=== PATIENT | male | born 1955 | race Caucasian/White ===

== ENCOUNTER 2018-10-10 10:13 | Outpatient (CLI) | payer OTHER, SELFPAY ==
[2018-10-10 11:41] LABS: ALT 35 U/L (12-78); AST 36 U/L (15-37); Alkaline Phosphatase 89 U/L (46-116); Anion Gap 8.7 mmol/L (3-11); BUN 16 mg/dL (7-18); Bilirubin, Total 0.5 mg/dL (0.2-1.0); CO2 30.3 mmol/L (21.0-32.0); CREATININE 0.88 mg/dL (0.70-1.30); Calcium 9.3 mg/dL (8.5-10.1); Chloride 103 mmol/L (98-107); Glucose 95 mg/dL (70-100); Potassium 4.3 mmol/L (3.5-5.1); Sodium 142 mmol/L (136-145); Total Protein 6.8 g/dL (6.4-8.2)
[2018-10-10 11:53] LABS: Cholesterol 205 mg/dL (50-200); HDL Cholesterol 50 mg/dL (40-60); LDL CHOLESTEROL 135 mg/dL (<100); Triglyceride 129 mg/dL (30-150)
== END 2018-10-10 10:33 ==
PROVIDERS: PCP Family Medicine; Visit Provider Family Medicine
DX: Z87.891 Personal history of nicotine dependence (principal); E78.00 Pure hypercholesterolemia, unspecified
CPT/HCPCS: 36415; 80053; 80061; 83721

== ENCOUNTER 2018-10-21 13:11 | Emergency (ER) | payer OTHER, SELFPAY ==
[2018-10-21 13:15] VITALS: BP 141/93; PULSE 84; RESP 16; TEMP 36.8; O2SAT 98
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
[2018-10-21 15:05] VITALS: BP 148/83; PULSE 75; RESP 16; TEMP 36.6; O2SAT 99
--- NOTE | 2018-10-21 15:20 | DI.VRAD_ITS ---
EXAM: XR Right Ribs EXAM DATE/TIME: 10/21/2018 2:27 PM CLINICAL HISTORY: 63 years old, male; Injury or trauma; Fall; Initial encounter; Abrasion; Rib area TECHNIQUE: Imaging protocol: XR Right ribs. Views: 2 views. COMPARISON: No relevant prior studies available. FINDINGS: Bones/joints: There is no displaced rib fracture. There is slight undulation of the anterolateral contour of the RIGHT 9th and 10th ribs which likely anatomic variation. No focal osseous lesions. Mild degenerative changes in the thoracic and upper lumbar spine. Soft tissues: Normal. IMPRESSION: No displaced rib fractures. EXAM: XR Chest, 2 Views EXAM DATE/TIME: 10/21/2018 2:27 PM CLINICAL HISTORY: 63 years old, male; Injury or trauma; Fall; Initial encounter; Abrasion; Rib area TECHNIQUE: Imaging protocol: XR of the chest, 2 views. COMPARISON: No relevant prior studies available. FINDINGS: Lungs: There are no pulmonary infiltrates or lung nodules. Pleural space: There is no evidence of pleural effusion or pneumothorax. Heart/Mediastinum: The cardiomediastinal silhouette is normal. Bones/joints: Mild degenerative changes in thoracic and upper lumbar spine. No acute osseous findings. IMPRESSION: No acute cardiopulmonary disease. Dictated and Authenticated by: Beatris Mccarty MD. Ordering:MEÑO Keith MD
--- NOTE | 2018-10-21 15:21 | DI.VRAD_ITS ---
EXAM: XR Right Elbow EXAM DATE/TIME: 10/21/2018 2:27 PM CLINICAL HISTORY: 63 years old, male; Injury or trauma; Fall; Initial encounter; Abrasion; Elbow; Right TECHNIQUE: Imaging protocol: XR Right elbow. Views: 3 or more views. COMPARISON: No relevant prior studies available. FINDINGS: Bones/joints: No acute fracture or dislocation. The intra-articular fat pads are not elevated. No focal osseous lesions. Articular structures are unremarkable. Soft tissues: Soft tissues are unremarkable. IMPRESSION: No acute findings. Dictated and Authenticated by: Beatris Mccarty MD. Ordering:MEÑO Keith MD
[2018-10-21 15:57] VITALS: BP 132/76; PULSE 80; RESP 16; TEMP 36.9; O2SAT 99
== END 2018-10-21 15:57 | disposition home or self-care (01) ==
PROVIDERS: Emergency Provider Physician Assistant; PCP Family Medicine
DX: S06.0X0A Concussion without loss of consciousness, initial encounter (principal); S20.211A Contusion of right front wall of thorax, initial encounter; S50.01XA Contusion of right elbow, initial encounter; V18.0XXA Pedal cycle driver injured in noncollision transport accident in nontraffic accident, initial encounter
CPT/HCPCS: 99284; 71046; 71100; 73080; 99282

== ENCOUNTER 2019-11-19 02:19 | Outpatient (CLI) | payer OTHER, SELFPAY ==
[2019-11-19 12:37] LABS: HCT 43.9 % (40.0-50.0); HGB 14.8 g/dL (13.5-17.5); Mean Corp. HGB Concentration 33.7 g/dL (32.0-36.0); Mean Corpuscular Hemoglobin 30.4 pg (27.0-33.0); Mean Corpuscular Volume 90.1 fL (80-95); Mean Platelet Volume 12.4 fL (8.0-11.0); Platelet Count 175 x1000/uL (130-400); RBC 4.87 m/cumm (4.50-6.00); RBC Distribution Width 12.5 % (11.8-14.1); White Blood Cell Count 6.97 k/cumm (4.4-10.8)
[2019-11-19 13:12] LABS: ALT 21 U/L (16-63); AST 19 U/L (15-37); Albumin 4.1 g/dL (3.4-5.0); Alkaline Phosphatase 87 U/L (46-116); Anion Gap 8.7 mmol/L (3-11); BUN 19 mg/dL (7-18); Bilirubin, Total 0.9 mg/dL (0.2-1.0); CO2 27.3 mmol/L (21.0-32.0); CREATININE 0.97 mg/dL (0.70-1.30); Calcium 9.4 mg/dL (8.5-10.1); Calculated LDL 129 mg/dL (<100); Chloride 105 mmol/L (98-107); Cholesterol 189 mg/dL (<200); Glucose 87 mg/dL (74-106); HDL Cholesterol 44 mg/dL (40-60); Potassium 4.6 mmol/L (3.5-5.1); Sodium 141 mmol/L (136-145); Total Protein 6.6 g/dL (6.4-8.2); Triglyceride 80 mg/dL (<150)
== END 2019-11-19 02:39 ==
PROVIDERS: PCP Family Medicine; Visit Provider Family Medicine
DX: E78.00 Pure hypercholesterolemia, unspecified (principal); R03.0 Elevated blood-pressure reading, without diagnosis of hypertension; Z00.00 Encounter for general adult medical examination without abnormal findings
CPT/HCPCS: 36415; 80053; 80061; 85027

== ENCOUNTER 2020-02-15 07:33 | Outpatient (CLI) | payer OTHER, SELFPAY ==
[2020-02-18 19:06] LABS: Patient Race White; SARS-CoV-2 RNA Undetected (Undetected); SARS-CoV-2 Specimen Source Nasopharynx
== END 2020-02-15 07:53 ==
PROVIDERS: PCP Family Medicine; Visit Provider Family Medicine
DX: Z11.59 Encounter for screening for other viral diseases (principal)
CPT/HCPCS: U0003

== ENCOUNTER 2020-10-29 08:14 | Outpatient (CLI) | payer MEDICARE, OTHER, SELFPAY ==
[2020-10-29 13:09] LABS: Hemoglobin A1C 5.6 % (<5.7)
[2020-10-29 14:10] LABS: ALT 23 U/L (16-63); AST 20 U/L (15-37); Alkaline Phosphatase 84 U/L (46-116); Anion Gap 5.4 mmol/L (3-11); BUN 17 mg/dL (7-18); Bilirubin, Total 0.6 mg/dL (0.2-1.0); CO2 31.6 mmol/L (21.0-32.0); Calcium 9.3 mg/dL (8.5-10.1); Calculated LDL 124 mg/dL (<100); Chloride 108 mmol/L (98-107); Cholesterol 194 mg/dL (<200); Glucose 95 mg/dL (74-106); HDL Cholesterol 48 mg/dL (40-60); Potassium 4.7 mmol/L (3.5-5.1); Sodium 145 mmol/L (136-145); Total Protein 6.6 g/dL (6.4-8.2); Triglyceride 113 mg/dL (<150)
[2020-10-29 22:25] LABS: PSA, Screening 2.1 ng/mL (0.0-4.5)
== END 2020-10-29 08:15 | disposition home or self-care (01) ==
PROVIDERS: PCP Nurse Practitioner Family; Visit Provider Nurse Practitioner Family
DX: R03.0 Elevated blood-pressure reading, without diagnosis of hypertension (principal); E78.00 Pure hypercholesterolemia, unspecified; Z13.1 Encounter for screening for diabetes mellitus; N40.0 Benign prostatic hyperplasia without lower urinary tract symptoms; Z12.5 Encounter for screening for malignant neoplasm of prostate
CPT/HCPCS: 36415; 80053; 80061; 84153; 83036

== ENCOUNTER 2021-05-27 03:04 | Outpatient (CLI) | payer MEDICARE, SELFPAY ==
[2021-05-28 11:42] LABS: COVID-19 RT-PCR UVMMC Result Negative (Negative)
== END 2021-05-27 03:05 | disposition home or self-care (01) ==
LOC: LBO 03:04
PROVIDERS: PCP Nurse Practitioner Family; Visit Provider Nurse Practitioner Family
DX: Z20.822 Contact with and (suspected) exposure to COVID-19 (principal)
CPT/HCPCS: U0003; U0005

== ENCOUNTER 2022-02-16 02:01 | Outpatient (CLI) | payer MEDICARE, SELFPAY ==
[2022-02-16 17:22] LABS: Calculated LDL 163 mg/dL (<100); Cholesterol 233 mg/dL (<200); HDL Cholesterol 53 mg/dL (40-60); Triglyceride 89 mg/dL (<150)
== END 2022-02-16 02:02 | disposition home or self-care (01) ==
PROVIDERS: PCP Family Medicine; Visit Provider Family Medicine
DX: E78.5 Hyperlipidemia, unspecified (principal)
CPT/HCPCS: 36415; 80061

== ENCOUNTER 2022-06-09 15:20 | Inpatient (IN) | payer MEDICARE, SELFPAY ==
[2022-06-09] VITALS (49 sets, daily range): BP systolic 133–196; BP diastolic 62–98; PULSE 65–96; RESP 11–34; TEMP 36.3–37.4; O2SAT 94–99
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
--- NOTE | 2022-06-09 15:33 | W.ED.GENAD ---
Discharge Plan Disposition Patient Disposition: Admit to [facility] Condition: Stable Discharge Details Clinical Impression: Concussion, Closed nondisplaced fracture of seventh cervical vertebra, Liver laceration, closed, Injury due to skiing accident Primary Care Provider: Jude Baker ED Provider: Cruz Clarke Home Meds and New Rx's Prescriptions: No Action No Known Home Meds Medical Decision Making 66-year-old male with a past medical history of chronic nasal septal deviation, nasal polyp, high cholesterol, presents today for evaluation of a skiing accident. Patient was found by bystanders unconscious in the [place] up against a tree that was about 10 inches in diameter. His helmet was on. He was extracted from the scene and brought down to the base. He was altered and confused with perseverations. He was wearing his helmet. He is not on blood thinners. He does complain of right chest pain, right back pain, and neck pain. Vital signs were stable per EMS. Patient has no other complaints at this time. Skull exam demonstrates right sided conjunctival injection, but no other traumatic abnormality. Mild right thoracic tenderness over the scapula and right lateral and posterior chest wall. Mild midline spinal tenderness over C7-T5. No lumbar or sacral tenderness. No abdominal tenderness. Bedside ultrasound demonstrates good lung movement on the left, slightly reduced lung movement but still a positive sliding on the right. No free fluid in the abdomen, no evidence of pericardial effusion or tamponade. Differential includes rib fractures, small pneumothorax but this is unlikely. Intracranial injury/bleed/concussion. We will get a CT scan of the head neck chest abdomen and pelvis. Patient's close were removed, and C-spine precautions were maintained. We will monitor closely and reassess. At this time GCS is 15, no signs of altered mental status requiring intubation. 7:[address] scan of the head is negative for acute process per radiology. CT scan of the neck demonstrated evidence of a C7 fracture at the left transverse process extending through the superior facet with a small osteophyte fracture as well. CTA of the neck shows no evidence of vertebral or carotid artery dissection. CT scan of the chest negative for acute process, CT scan of the abdomen showed no acute process per Dr. Echevarria, however she stated that there was motion artifact and if there was a high degree of suspicion that the patient should be rescanned for his abdomen for potential liver laceration. Repeat CT scan was performed and shows a 2 cm laceration versus contusion that does not extend to the capsule. Secondary survey continues to demonstrate a well-appearing male. He has had a normal heart rate during his entire stay, no tachycardia or hypotension whatsoever. He does have a very mild amount of right upper abdominal tenderness versus right lower chest wall tenderness. EKG and troponin are normal. Hemoglobin is stable at 14.7. Electrolytes and renal function good. We did contact [facility] spine and discussed the case with Dr. Wicnhester, he reviewed the images, and at this time his recommendations are no DVT prophylaxis, rigid c-collar for the next 2 weeks and outpatient follow-up in 2 weeks. He did state that if we could get an upright AP and lateral, as well as a swimmer view at some point that that would be helpful for further outpatient assessment. We did contact [facility] trauma surgery, Dr. Mathew, we discussed the case and the liver laceration versus contusion with him. Images were reviewed. Physical exam findings, and hemodynamic status, and hemoglobin levels were also discussed. At this time Dr. Mathew does feel that continued observation is warranted and reasonable. Unfortunately at this time [facility] does not have any beds available for transfer. With this component, Dr. Mathew does feel that the patient would be appropriate for continued close monitoring here at [facility], but he also did explicitly state that if there is any changes, or concerns in the patient's status that he is available for consult at any time tonight for reassessment and rediscussion of the case. I discussed the case with the hospitalist Dr. Merida, he accepts the patient for admission to the ICU. This was also discussed with the nursing power plant operators supervisor Ramona, and we do have ICU beds available and staff feels comfortable with this as the patient is hemodynamically stable with no worsening clinical component at this time. Current heart rate is 70, oxygenation is 98% on room air, blood pressure is 130/72. I did reassess the patient's mental status, vision is intact in both eyes, he is able to communicate well, however he does have some recall issues still when asking him to relay the plan that was discussed. I do suspect mild to moderate concussion. We will continue to monitor. I have extensively reviewed the treatment plan with the patient. I have addressed all patient concerns at this time. I have also discussed the plan with the admitting physician and they agree with the current assessment and plan and have agreed to assume responsibility for the patient. All parties demonstrate verbal understanding and agreement with our assessment and plan at this time. The documentation in this chart was dictated using [employer] dictation software. Please excuse any dictation errors. Additionally per the request of Dr. Merida, we have typed and crossed for 4 units of blood out of an abundance of precaution. FINDINGS: Head CT Exam somewhat limited by streak artifact from IO is outside of the patient. Ventricles and Extra axial spaces: Normal in size and morphology for the patient's age. Hemorrhage: None. Cerebral parenchyma: Normal. Midline shift: None. Brainstem/Cerebellum: Normal. Calvarium: Normal. Visualized Paranasal sinuses/Mastoids: Mucous retention cyst left maxillary sinus. Cervical Spine CT BONES: Vertebral body heights are maintained. Alignment is normal. There is a nondisplaced fracture through the left transverse process of C7. There is also a fracture extending through the adjacent superior facet of C7. there is also question of fracture through an osteophyte at the lateral border of the C7 vertebral body. Degenerative disc changes and facet degenerative changes are seen . SOFT TISSUES: No paraspinal hematoma. The airway appears intact. No pneumothorax is seen at the lung apices. IMPRESSION: Head CT: No acute abnormality. C-spine CT: Nondisplaced fractures through the left transverse process and left superior articulating facet of C7. Degenerative changes. Findings discussed with Dr. Clarke of the emergency department. FINDINGS: CHEST: Exam somewhat limited by respiratory motion at the lung bases. Tracheobronchial tree: Patent where visualized. Mediastinum and Letty: No dominant adenopathy or fluid collection. Pulmonary parenchyma: No consolidation or dominant measurable mass. Pleura: No effusion or pneumothorax. Lymph nodes: Within normal limits. Aorta: Thoracic portion non-dilated. Heart: Normal size. No pericardial effusion. Bones: Unremarkable for age. No rib or spine fractures identified. ABDOMEN: Liver: Limited evaluation due to significant motion artifact. Question of an area of decreased density in the posterior superior right lobe. Normal density. No measurable mass. Gallbladder and biliary tract: No radiodense calculus or dilation. Pancreas: Normal density, no abnormal calcifications or inflammatory process. Spleen: Normal. Kidneys: Normal size, contour and axis. No radiodense stones or obstructive uropathy. No masses seen. Bilateral parapelvic renal cysts. Adrenal glands: No masses seen. Aorta: Abdominal portion non-dilated. Mild atherosclerotic changes. Lymph nodes: Within normal limits. Soft tissues: Unremarkable. PELVIS: Bladder: Markedly distended. No gross wall thickening. Bowel: No obstruction or bowel wall thickening. Appendix normal. Peritoneal cavity: No ascites, collection or mesenteric inflammatory response. Bones: No evidence of spine or pelvic fracture. SI joints and pubic symphysis appear intact. Degenerative changes of both hips. Mild degenerative changes of the lumbar spine. Reproductive organs: Mildly enlarged prostate. Both testicles appear to be positioned within the inguinal canals. Small bilateral hydroceles are suspected. IMPRESSION: Limited evaluation of the liver due to significant motion artifact. There is high clinical concern of liver laceration, recommend rescanning through the liver. No fracture in the thoracic, lumbar spine or pelvis. Findings discussed with Dr. Clarke of the emergency department. FINDINGS: Right common carotid artery: No stenosis. No dissection or occlusion. Right internal carotid artery: No stenosis of the extracranial segment. No dissection or occlusion. Right external carotid artery: No occlusion or stenosis of the origin. Left common carotid artery: No stenosis. No dissection or occlusion. Left internal carotid artery: No stenosis of the extracranial segment. No dissection or occlusion. Left external carotid artery: No occlusion or stenosis of the origin. Right vertebral artery: No stenosis. No dissection or occlusion. Left vertebral artery: No stenosis. No dissection or occlusion. Soft tissues: Normal. No significant soft tissue swelling. Bones/joints: No acute fracture. IMPRESSION: No evidence of 50% or greater stenosis involving the cervical segments of the right or left internal carotid arteries by NASCET criteria. No carotid or vertebral dissection is or occlusions are detected at cervical levels. REFERENCES: NASCET CRITERIA. The degree of stenosis in the cervical segment of the internal carotid artery is based on NASCET criteria. Normal is no stenosis. Mild is less than 50% stenosis. Moderate is 50- 69% stenosis. Severe is 70% to 99% stenosis. Total occlusion is no detectable patent lumen. Thank you for allowing us to participate in the care of your patient. Dictated and Authenticated by: Massimo Warren MD 06/09/2022 6:40 PM Eastern Time ([place] & [place]) FINDINGS: Lungs: Minimal dependent subsegmental atelectasis. Liver: In the right lobe of the liver is a 23 mm linear hypodensity which does not extend to the capsule. Allowing for motion artifact this is likely very similar to the previous study. There is no significant perihepatic fluid. No subcapsular fluid. Gallbladder and bile ducts: No calcified stones. No ductal dilation. Pancreas: No ductal dilation. No masses. Spleen: No splenomegaly or focal lesions. Adrenal glands: No mass. Kidneys and ureters: Benign-appearing parapelvic cysts in the kidneys. No renal masses or hydronephrosis bilaterally. Stomach and bowel: A few scattered colonic diverticula without inflammation. No focal pathology in the small bowel. Appendix: No evidence of appendicitis. Intraperitoneal space: No free air. No significant fluid collection. Vasculature: No abdominal aortic aneurysm. Lymph nodes: No significantly enlarged lymph nodes. Urinary bladder: The urinary bladder is distended. Mildly trabeculated urinary bladder wall likely relates to chronic outlet obstructive disease. Reproductive: Mild prostatic enlargement. Bones/joints: Scattered degenerative changes in the bones with no acute fracture. Soft tissues: No suspicious lesions. IMPRESSION: 1. Right hepatic laceration/contusion, grade 2 based on length, however not extending to the capsule, similar to previous imaging. 2. Incidental findings as described. Thank you for allowing us to participate in the care of your patient. Dictated and Authenticated by: Juli Ford MD 06/09/2022 6:43 PM Eastern Time ([place] & [place] HPI General Date/Time Provider Initiated Documentation: 06/09/22 15:30. HPI Narrative: 66-year-old male with a past medical history of chronic nasal septal deviation, nasal polyp, high cholesterol, presents today for evaluation of a skiing accident. Patient was found by bystanders unconscious in the [place] up against a tree that was about 10 inches in diameter. His helmet was on. He was extracted from the scene and brought [place] to the base. He was altered and confused with perseverations. He was wearing his helmet. He is not on blood thinners. He does complain of right chest pain, right back pain, and neck pain. Vital signs were stable per EMS. Patient has no other complaints at this time. Related Data Home Medications Medication Instructions Recorded Confirmed Unknown [No Known Home Meds] 02/03/22 02/03/22 Allergies Allergy/AdvReac Type Severity Reaction Status Date / Time Pollen Allergy Mild Uncoded 02/03/22 15:15 General Stated Complaint: Trauma CLAUDINE: 2 Review of Systems All systems reviewed & are unremarkable except as noted in HPI and below PFSH All Active Problems (Updated 06/09/22 @ 19:54 by Cruz Clarke DO) Concussion (Acute) Closed nondisplaced fracture of seventh cervical vertebra (Acute) Liver laceration, closed (Acute) Injury due to skiing accident (Acute) Tinea pedis (Acute) BPH NOS w/o ur obs/LUTS (Acute) Elevated BP without diagnosis of hypertension (Acute) Seasonal allergic rhinitis due to pollen (Acute) Migraine with aura and without status migrainosus, not intractable (Acute) Nasal polyp (Chronic) Elevated LDL cholesterol level (Chronic) Family history of Alzheimer's disease (Acute 10/04/17) History of tobacco use (Acute) Injury of eye region (Acute) Nasal septal deviation (Acute 10/04/17) Medical History (Updated 06/09/22 @ 19:54 by Cruz Clarke DO) Nasal septal deviation Surgical History colonoscopy (12/26/17) Colonoscopy - MAC (~2006) eye surgery left Tonsillectomy Family History Mother , 89 Alzheimer's disease Skin cancer Father Essential hypertension Alcohol abuse Sister Asthma Hypertension Brother Skin cancer Brother Skin cancer Brother No problems noted. Maternal Grandfather , 87 Stroke Paternal Grandfather , 89 Alzheimer's disease Maternal Grandmother , 94 No problems noted. Paternal Grandmother , 20s - peritonitis No problems noted. Social History Smoking/Tobacco Use Status: Former Tobacco Use tobacco type: cigarettes and cigars Quit Date: 05/16/89 Tobacco: How many years used: 20 Second Hand Exposure: Yes Smoking risk assessment performed?: Yes Alcohol Intake: current Alcohol Intake frequency: a few times a week Alcohol type: beer Drug use: Rarely Substance use type: marijuana Caregiver/Support person: No Household members: none Housing: house Communication Needs: None Do you need help understanding health information?: Never Pets and animals: No Sexually active: No Do you think of yourself as: straight/heterosexual Current gender identity: male What is your relationship status?: How often do you talk on the phone with friends or family?: three or more times per week How often do you get together with friends or relatives?: three or more times per week Do you belong to any clubs or organized social groups?: no Panel score (0-1 are the most socially isolated patients): 1 What type of physical activity do you participate in: bicycling, weight lifting and other Details: rowing, skiing Duration: > 90 minutes/day Frequency: daily Madonna/Jainism: none Special madonna needs: No Seatbelt use: always Helmet use: Yes Helmet use: always Drive intox or ride w/intox transit mixer driver: No Do you feel safe at home: Yes Do you feel safe in your relationship?: Yes Exam Narrative Exam Narrative: 1.Const: Well-nourished, Well-developed, appearing stated age 2.Eyes: PERRL, notable conjunctival injection on the right, none on the left, no proptosis. No tenderness over the eye or the orbit 3.ENT: Atraumatic external nose and ears. Moist MM. Neck: Symmetric, trachea midline, No thyromegaly. There is no evidence of raccoon eyes, sauer sign, CSF rhinorrhea, mastoid tenderness, cranial crepitus, hemotympanum, exophthalmos, or hyphema. Patient demonstrates intact dentition with no signs of tooth avulsion or fracture, no signs of jaw deformity, no evidence of a LeFort's fracture, with an intact palate, nose and orbital region. There is no evidence of a nasal septal hematoma. No proptosis. Jaw closes symmetrically. Airway is clear. 4.CVS: Regular rate and rhythm, Normal s1 and s2. No murmurs, carotid bruits, rubs, or gallops. Radial pulses 2+ bilaterally and symmetric. Dorsalis pedis pulses 2+ bilaterally and symmetric. 2+ capillary refill. No evidence of distant heart sounds. No extremity edema. No evidence of gross hemorrhage. 5.RESP: Airway clear, no obstructions. No abrasions or ecchymosis. Chest movement symmetric with respirations. No lateral or anterior chest wall tenderness. Mild right posterior thoracic tenderness. trachea midline. No crepitus. No step offs. No paradoxical movements. Lungs are clear to auscultation bilaterally. No rales, rhonchi, wheezing or stridor. Breath sound symmetric. No Sucking chest wounds. No clinical evidence of significant chest trauma. 6.GI: Soft, nondistended, nontender. Bowel tones normoactive. No masses or organomegaly. No ecchymosis or abrasions. No periumbilical ecchymosis or seatbelt sign. No flank or CVA tenderness. No clinical signs of significant trauma. Genital Exam: Intact and traumatically unremarkable genital and rectal exam with no significant bruising, blood, or deformity. Rectal tone normal, stool without gross blood. No clinical evidence of significant abdominal trauma. 7.MSK: No gross deformities or discolorations or lesions. Tolerates full range of motion of extremities without tenderness. All compartments of upper and lower extremities are soft with no tenderness. Vascular exam demonstrates brisk capillary refill and intact pulses in all extremities. Pelvic exam demonstrates a stable pelvis, nontender to lateral compression and palpation of symphysis pubis.. No clinical evidence of significant musculoskeletal trauma. No midline tenderness to palpation over the LS spine. Mild tenderness over C7-T2 midline. C-collar is in place. Patient has +5 out of 5 strength in the lower extremities in dorsiflexion and plantarflexion, knee flexion and extension, hip flexion and extension. Normal strength for dorsiflexion and plantar flexion of the great toe bilaterally. There is +2 over 2 dorsalis pedis pulses bilaterally. There is normal sensation to the skin with light touch at the foot, knee, and hip. Normal saddle sensation. Good sensation over the deep sural nerve area bilaterally. Rectal exam deferred. Reflexes are +2 over 4 in the patellar reflex bilaterally. +5 out of 5 strength in the medial, ulnar, radial nerve distribution bilaterally in the hands as well as intact light touch sensation to these dermatomes on the hands 8.Skin: Warm, Dry. No rashes or lesions. 9.Neuro: vascular surgeon II-XII grossly intact. Sensation grossly intact, no focal neurologic deficits. 10.Psych: (AAO) x3. Appropriate mood and affect. He does not seem to show any altered mental status at this stage currently Course Vital Signs Vital signs: Vital Signs Temperature 36.3 C L 06/09/22 15:21 Pulse 83 06/09/22 15:21 Respiratory Rate 18 06/09/22 15:21 Blood Pressure 186/96 H 06/09/22 15:21 Pulse Oximetry 98 06/09/22 15:21 Temperature 36.3 C L 06/09/22 15:21 Temperature Source Tympanic 06/09/22 15:21 Pulse 83 06/09/22 15:21 Respiratory Rate 18 06/09/22 15:21 Respiratory Effort 06/09/22 15:26 Blood Pressure 186/96 H 06/09/22 15:21 Pulse Oximetry 98 06/09/22 15:21 Oxygen Delivery Method Room Air 06/09/22 15:21 Oxygen Flow Rate 0 06/09/22 15:21 Pain Level 10 06/09/22 15:21 POCUS Exam (ED) Efast Exam DATE OF EXAM: 06/09/22 TIME OF EXAM: 15:39 PROVIDER THAT PEFORMED THE STUDY: Cruz Clarke IS THIS A REPEAT EXAM DURING THIS ENCOUNTER: no REASON FOR EXAM: Blunt chest trauma and Chest pain VISUALIZED STRUCTURES: Hepatorneal space, Pelvis, Pericardium, Perisplenic space, Pleural space/left and Pleural space/right PERTINENT FINDINGS/IMPRESSION: no apparent abnormalities; no apparent free fluid, lung sliding, left side, lung sliding,right side, no pericardial effusion, no pleural effusion on the left side, no pleural effusion on the right side, no pneumothorax on left side and no pneumothorax on right side Limited Transthoracic Echo: Exam complete Limited Abdominal Exam: Exam complete Limited Retroperitoneal Exam: Exam complete
--- NOTE | 2022-06-09 15:34 | DI.CT_ITS ---
Exam(s) CT CHEST/ABD/PEL W CT THORACIC LUMBAR SPINE REC EXAM: CT CHEST/ABD/PEL W CLINICAL HISTORY: ski acc, altered, +LOC, R chest pain, neck pain. TECHNIQUE: Imaging Protocol: Axial computed tomography images with coronal and sagittal reformatted images were created and reviewed CONTRAST MATERIAL: Intravenous: Omnipaque 350 Contrast volume:100 ml Oral: no COMPARISON: CT CT THORACIC LUMBAR SPINE REC from 06/09/2022 FINDINGS: CHEST: Exam somewhat limited by respiratory motion at the lung bases. Tracheobronchial tree: Patent where visualized. Mediastinum and Letty: No dominant adenopathy or fluid collection. Pulmonary parenchyma: No consolidation or dominant measurable mass. Pleura: No effusion or pneumothorax. Lymph nodes: Within normal limits. Aorta: Thoracic portion non-dilated. Heart: Normal size. No pericardial effusion. Bones: Unremarkable for age. No rib or spine fractures identified. ABDOMEN: Liver: Limited evaluation due to significant motion artifact. Question of an area of decreased densi ty in the posterior superior right lobe. Normal density. No measurable mass. Gallbladder and biliary tract: No radiodense calculus or dilation. Pancreas: Normal density, no abnormal calcifications or inflammatory process. Spleen: Normal. Kidneys: Normal size, contour and axis. No radiodense stones or obstructive uropathy. No masses seen. Bilateral parapelvic renal cysts. Adrenal glands: No masses seen. Aorta: Abdominal portion non-dilated. Mild atherosclerotic changes. Lymph nodes: Within normal limits. Soft tissues: Unremarkable. PELVIS: Bladder: Markedly distended. No gross wall thickening. Bowel: No obstruction or bowel wall thickening. Appendix normal. Peritoneal cavity: No ascites, collection or mesenteric inflammatory response. Bones: No evidence of spine or pelvic fracture. SI joints and pubic symphysis appear intact. Degene rative changes of both hips. Mild degenerative changes of the lumbar spine. Reproductive organs: Mildly enlarged prostate. Both testicles appear to be positioned within the ing uinal canals. Small bilateral hydroceles are suspected. IMPRESSION: Limited evaluation of the liver due to significant motion artifact. There is high clinical concern o f liver laceration, recommend rescanning through the liver. No fracture in the thoracic, lumbar spine or pelvis. Findings discussed with Dr. Clarke of the emergency department. RADIATION DOSE DELIVERED: 1132.89 mGy.cm Total DLP DATA REPOSITORY: All CT scans at this facility are submitted to the National Radiology Data Registry (NRDR) Dose Index Registry (DIR) with the [employer] ([employer]). RADIATION OPTIMIZATION: All CT scans at this facility use at least one of these dose optimization te chniques: automated exposure control; mA and/or kV adjustment per patient size (includes targeted exa ms where dose is matched to clinical indication); or iterative reconstruction.
[2022-06-09] MEDS: Normal Saline - Diluent 50 ML VIAL IJ ×2 (15:44→18:32)
--- NOTE | 2022-06-09 15:44 | NUR.NOTE ---
attempted to call daughterRenetta and brother, Huan,per patient's request. left messages for them to return call to ed.
[2022-06-09] MEDS: Omnipaque 350 MG/ML 100 ML BTL IJ ×2 (15:46→18:33)
[2022-06-09 15:52] LABS: Abs Immature Grans 0.07 10^3/uL (0.0-0.06); Absolute Basophil Count 0.08 10^3/uL (0.0-0.2); Absolute Lymphocyte Count 2.05 10^3/uL (1.2-3.4); Absolute Monocyte Count 0.57 10^3/uL (0.1-0.8); Basophils % 0.7; Eosinophils % 0.9; HCT 44.8 % (40.0-50.0); HGB 14.7 g/dL (13.5-17.5); Immature Grans % 0.6; Lymphocytes % 18.8; MCHC 32.8 % (32.0-36.0); MCV 91 fL (80-95); MPV 12.4 fL (8.0-11.0); Monocytes % 5.2; Neutrophils % 73.8; Platelet Count 199 10^3/uL (130-400); RDW 12.3 % (11.8-14.1); RDW-SD 41.7 fL; WBC 10.91 10^3/uL (4.4-10.8)
[2022-06-09 15:53] LABS: BE (Venous) -2 mmol/L (-2-3); HCO3 (Venous) 22 mmol/L (23-28); pCO2 (Venous) 34 mmHg (41-51); pH (Venous) 7.42 (7.31-7.41); pO2 (Venous) 207 mmHg
[2022-06-09 15:54] LABS: O2 Sat (Venous) > 99 %
[2022-06-09 15:55] LABS: Absolute Neutrophil Count 8.05 10^3/uL (1.2-6.7)
[2022-06-09] MEDS: MORPHine 4 MG/ML SYR IVP (16:03)
[2022-06-09 16:18] LABS: Creatine Kinase 965 U/L (39-308)
[2022-06-09 16:29] LABS: PTT Activated 24.5 sec (21.0-27.5); Prothrombin Time 10.1 sec (9.3-11.0)
--- NOTE | 2022-06-09 16:45 | RT.EKG_ITS ---
APPROVED REPORT Exam: Resting ECG Reason for Exam: chest pain Patient Location: E HR:62 bpm ECG Measurements Heart Rate 62 AXIS MI 146 P 71 QRSd 81 QRS 75 QT 423 T 47 QTc 431 Conclusion Sinus rhythm...normal P axis, V-rate 60- 99 Physician: no stemi
[2022-06-09 17:20] LABS: ALT 35 U/L (16-63); AST 58 U/L (15-37); Albumin 4.2 g/dL (3.4-5.0); Alkaline Phosphatase 87 U/L (46-116); Anion Gap 7.4 mmol/L (3-11); BUN 16 mg/dL (7-18); Bilirubin, Total 0.6 mg/dL (0.2-1.0); CO2 26.6 mmol/L (21.0-32.0); Calcium 9.3 mg/dL (8.5-10.1); Chloride 107 mmol/L (98-107); Estimated GFR 83.01 (mL/min/1.73m2); Glucose 134 mg/dL (74-106); Lipase 74 U/L (73-393); Magnesium 2.1 mg/dL (1.8-2.4); Potassium 4.3 mmol/L (3.5-5.1); Sodium 141 mmol/L (136-145)
[2022-06-09 17:30] LABS: Troponin I < 50 ng/L (<or=60)
--- NOTE | 2022-06-09 17:45 | DI.CT_ITS ---
Exam(s) CT CAROTID NECK CTA EXAM: CT CAROTID NECK CTA CLINICAL HISTORY: new left neck fracture. TECHNIQUE: Imaging Protocol: Axial CT angiography was performed with multi-slice acquisition and mu lti-planar and/or 3D reconstructions. CONTRAST MATERIAL: Intravenous: Omnipaque 350 Contrast volume:100 mL COMPARISON: CT CT THORACIC LUMBAR SPINE REC from 06/09/2022 FINDINGS: OSSEOUS: Described fracture through the left transverse process of C7 and adjacent superior facet of C7 noted. CTA NECK W: AORTIC ARCH ANATOMY: Unconventional in that the left vertebral artery originates as an independent ve ssel off the aortic arch, instead of arising in conventional fashion off of the left subclavian arter y. The right vertebral artery originates in conventional fashion off of the right subclavian artery. Both vertebral arteries ascend within the foramen transverse area with normal luminal diameters and no evidence of intraluminal thrombus nor dissection. At the skull base both vertebral arteries cont ribute to the formation of basilar artery. Visualized basilar artery is patent. The anatomy of the vertebral arteries is such that they anterior the foramen transversarium above the fracture level. T hey enter at C5 level. Anterior circulation: Both common carotid arteries are patent with no significant stenosis at their origins and both ascend with normal luminal diameters. There is no stenosis nor dissection at the carotid bifurcations and proximal internal carotid arteries. Both vertebral arteries are patent in the upper neck and skull b ase-carotid canals. Posterior circulation: See above IMPRESSION: 1. Patent carotid and vertebral arteries in the neck without evidence of intraluminal thrombus nor d issection and no significant plaque at the proximal internal carotid arteries and carotid bulbs nor w ithin the vertebral arteries. 2. The vertebral arteries enter the foramen transversarium at level above the C7 level fracture. RADIATION DOSE DELIVERED: 1010.56 mGy.cm Total DLP DATA REPOSITORY: All CT scans at this facility are submitted to the National Radiology Data Registry (NRDR) Dose Index Registry (DIR) with the [employer] (ACR). RADIATION OPTIMIZATION: All CT scans at this facility use at least one of these dose optimization te chniques: automated exposure control; mA and/or kV adjustment per patient size (includes targeted exa ms where dose is matched to clinical indication); or iterative reconstruction.
--- NOTE | 2022-06-09 17:45 | DI.CT_ITS ---
Exam(s) CT ABDOMEN PELVIS W EXAM: CT ABDOMEN PELVIS W CLINICAL HISTORY: poor motion artifact, trauma, r/o liver laceration. TECHNIQUE: Imaging Protocol: Axial computed tomography images with coronal and sagittal reformatted images were created and reviewed CONTRAST MATERIAL: Intravenous: Omnipaque-350 100cc Oral: None COMPARISON: CT CT CHEST/ABD/PEL W from 06/09/[address] CAROTID NECK CTA from 06/09/2022 FINDINGS: VISUALIZED LUNG BASES: No nodules nor pleural effusions evident. ABDOMEN: There is no ascites. LIVER: Previously described hypodensity in the right hepatic lobe is unchanged. In the setting of tr auma this is probably a small laceration. There is no large subcapsular hematoma nor perihepatic flu id. GALLBLADDER/BILIARY: No obvious gallbladder pathology. CBD is not dilated. PANCREAS: No evidence of pancreatic mass nor dilatation of the pancreatic duct. SPLEEN: Spleen is intact. Normal size. No obvious splenic laceration. Splenic and portal veins are patent. ADRENALS: Slight thickening both adrenal glands noted. KIDNEYS:None no evidence of renal laceration or subcapsular hematoma. No solid masses. Parapelvic c ysts are seen bilaterally. No hydronephrosis. No hydroureter. Urinary bladder is intact.. ABDOMINAL AORTA: Intact. No aneurysm. No dissection. LYMPH NODES:There is no retroperitoneal nor paraaortic adenopathy. ABDOMINAL WALL: No evidence of significant anterior abdominal wall nor inguinal hernia. No prominent subcutaneous bruising nor fluid collection. GI: There is no evidence of bowel obstruction, free air, nor abscess. No evidence of mesenteric nor bowel wall hematoma. PELVIS: GI: No evidence of appendicitis.No evidence of sigmoid diverticulitis. LYMPH NODES: There is no intrapelvic nor inguinal adenopathy. REPRODUCTIVE: Mild prostate enlargement. Also lobulation the prostate indenting the bladder, this me asuring 10 x 10 millimeters. Testing for significant pathology of prostate recommended.. URINARY BLADDER: Mild thin trabeculations noted in the bladder. No obvious mass. OSSEOUS: No fractures and no significant osseous lesions. IMPRESSION: 1. Right hepatic lobe laceration/contusion. No evidence of subcapsular hematoma nor perihepatic flui d/blood. 2. Spleen and kidneys are intact as is the aorta. There is no evidence of bowel wall nor mesenteric hematoma. 3. No fractures identified. 4. Incidental finding of slightly enlarged and lobulated prostate gland. Recommend further testing t o rule out significant prostate pathology. Also noted is some thin benign-appearing stranding in the urinary bladder. No evidence of hematoma/c lots in the urinary bladder lumen. No perivesicular stranding. First read by [facility]. RADIATION DOSE DELIVERED: Total DLP DATA REPOSITORY: All CT scans at this facility are submitted to the National Radiology Data Registry (NRDR) Dose Index Registry (DIR) with the [employer] (ACR). RADIATION OPTIMIZATION: All CT scans at this facility use at least one of these dose optimization te chniques: automated exposure control; mA and/or kV adjustment per patient size (includes targeted exa ms where dose is matched to clinical indication); or iterative reconstruction.
[2022-06-09 17:49] LABS: ETHANOL BLOOD < 3.0 mg/dL (<10)
[2022-06-09 18:03] LABS: *AMPHETAMINES SCREEN URINE Negative (Negative); *BARBITURATES SCREEN URINE Negative (Negative); *BENZODIAZEPINES SCREEN URINE Negative (Negative); Cannabinoids THC Negative (Negative); Cocaine Screen,Urine Negative (Negative); METHADONE URINE SCREEN Negative (Negative); OPIATES URINE SCREEN Positive (Negative)
[2022-06-09 18:09] LABS: Tricyclic Antidepressants Negative (Negative)
--- NOTE | 2022-06-09 18:41 | DI.VRAD_ITS ---
PROCEDURE INFORMATION: Exam: CTA Neck With Contrast Exam date and time: 06/09/2022 6:01 PM Age: 66 years old Clinical indication: Other: New left neck fracture; Additional info: Poor motion artifact, on prior cap. Trauma R/O liver laceration. Multi part exam neck cta done first so abdomen might be a little delayed in contrast TECHNIQUE: Imaging protocol: Computed tomographic angiography of the neck with contrast. 3D rendering (Not supervised by radiologist): MIP and/or 3D reconstructed images were created by the technologist. Contrast material: 350; Contrast volume: 100 ml; Contrast route: INTRAVENOUS (IV); COMPARISON: CT HEAD CERVICAL SPINE WO 06/09/2022 3:36 PM FINDINGS: Right common carotid artery: No stenosis. No dissection or occlusion. Right internal carotid artery: No stenosis of the extracranial segment. No dissection or occlusion. Right external carotid artery: No occlusion or stenosis of the origin. Left common carotid artery: No stenosis. No dissection or occlusion. Left internal carotid artery: No stenosis of the extracranial segment. No dissection or occlusion. Left external carotid artery: No occlusion or stenosis of the origin. Right vertebral artery: No stenosis. No dissection or occlusion. Left vertebral artery: No stenosis. No dissection or occlusion. Soft tissues: Normal. No significant soft tissue swelling. Bones/joints: No acute fracture. IMPRESSION: No evidence of 50% or greater stenosis involving the cervical segments of the right or left internal carotid arteries by NASCET criteria. No carotid or vertebral dissection is or occlusions are detected at cervical levels. REFERENCES: NASCET CRITERIA. The degree of stenosis in the cervical segment of the internal carotid artery is based on NASCET criteria. Normal is no stenosis. Mild is less than 50% stenosis. Moderate is 50-69% stenosis. Severe is 70% to 99% stenosis. Total occlusion is no detectable patent lumen. Dictated and Authenticated by: Massimo Warren MD. Ordering:ROCKY Arroyo MD
--- NOTE | 2022-06-09 18:43 | DI.VRAD_ITS ---
Addendum created by Juli Ford MD on 06/09/2022 6:54:45 PM EST: THIS REPORT CONTAINS FINDINGS THAT MAY BE CRITICAL TO PATIENT CARE. The pertinent findings were verbally communicated via telephone conference with SUN HERNANDEZ at 18:54 EST on 06/09/2022. The findings were acknowledged and understood. Initial report created on 06/09/2022 6:43:20 PM EST: PROCEDURE INFORMATION: Exam: CT Abdomen And Pelvis With Contrast Exam date and time: 06/09/2022 18:01 Age: 66 years old Clinical indication: Other: R/O laceration of liver; Additional info: Poor motion artifact, on prior cap. Trauma R/O liver laceration TECHNIQUE: Imaging protocol: Computed tomography of the abdomen and pelvis with contrast. Contrast material: 350; Contrast volume: 70 ml; Contrast route: INTRAVENOUS (IV); COMPARISON: CT CHEST/ABD/PEL W 06/09/2022 15:46 FINDINGS: Lungs: Minimal dependent subsegmental atelectasis. Liver: In the right lobe of the liver is a 23 mm linear hypodensity which does not extend to the capsule. Allowing for motion artifact this is likely very similar to the previous study. There is no significant perihepatic fluid. No subcapsular fluid. Gallbladder and bile ducts: No calcified stones. No ductal dilation. Pancreas: No ductal dilation. No masses. Spleen: No splenomegaly or focal lesions. Adrenal glands: No mass. Kidneys and ureters: Benign-appearing parapelvic cysts in the kidneys. No renal masses or hydronephrosis bilaterally. Stomach and bowel: A few scattered colonic diverticula without inflammation. No focal pathology in the small bowel. Appendix: No evidence of appendicitis. Intraperitoneal space: No free air. No significant fluid collection. Vasculature: No abdominal aortic aneurysm. Lymph nodes: No significantly enlarged lymph nodes. Urinary bladder: The urinary bladder is distended. Mildly trabeculated urinary bladder wall likely relates to chronic outlet obstructive disease. Reproductive: Mild prostatic enlargement. Bones/joints: Scattered degenerative changes in the bones with no acute fracture. Soft tissues: No suspicious lesions. IMPRESSION: 1. Right hepatic laceration/contusion, grade 2 based on length, however not extending to the capsule, similar to previous imaging. 2. Incidental findings as described. Dictated and Authenticated by: Juli Ford MD. Ordering:ROCKY Arroyo MD
[2022-06-09 19:55] LABS: Source Nasal/Nares
[2022-06-09] MEDS: Normal Saline 1,000 ML 1000 ML IV (19:56)
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
[2022-06-09 20:27] LABS: COVID-19 PCR Negative (Negative)
[2022-06-09] MEDS: Acetaminophen 500 MG TAB 1000 MG PO (21:53)
[2022-06-09 22:50] LABS: Abs Immature Grans 0.06 10^3/uL (0.0-0.06); Absolute Lymphocyte Count 0.73 10^3/uL (1.2-3.4); Absolute Monocyte Count 0.54 10^3/uL (0.1-0.8); Basophils % 0.2; HCT 44.6 % (40.0-50.0); Immature Grans % 0.4; Lymphocytes % 4.3; MCH 30.6 pg (27.0-33.0); MCHC 33.6 % (32.0-36.0); MCV 91 fL (80-95); MPV 12.1 fL (8.0-11.0); Monocytes % 3.2; Neutrophils % 91.9; Platelet Count 155 10^3/uL (130-400); RDW 12.3 % (11.8-14.1); RDW-SD 41.5 fL; WBC 16.87 10^3/uL (4.4-10.8)
[2022-06-09 22:51] LABS: Absolute Basophil Count 0.03 10^3/uL (0.0-0.2)
[2022-06-10] VITALS (86 sets, daily range): BP systolic 115–172; BP diastolic 53–133; PULSE 54–90; RESP 12–24; TEMP 36.4–37.1; O2SAT 93–99
--- NOTE | 2022-06-10 | DI.CT_ITS ---
Exam(s) CT CERVICAL SPINE WO EXAM: CT CERVICAL SPINE WO CLINICAL HISTORY: follow up cervical fracture. TECHNIQUE: Imaging Protocol: Axial computed tomography images with coronal and sagittal reformatted images were created and reviewed COMPARISON: CT CT HEAD CERVICAL SPINE WO from 06/09/2022 FINDINGS: Bones: There is again seen a fracture through the left transverse process and facet of C7. There has been no significant change in appearance of the fracture components. There is persistent left neura l foraminal narrowing at the level of the fracture fragments. Mild narrowing of the central spinal c anal is also noted. No new fractures identified. There is also a fracture of the adjacent C7 osteop hyte anteriorly. Multilevel degenerative changes are seen throughout the cervical spine. Soft Tissues: Unremarkable. Lung Apices: Clear. IMPRESSION: Stable fractures involving C7 as described above. There is severe left neural foraminal stenosis sec ondary to the fracture at this level and mild central spinal canal stenosis is noted at this level. RADIATION DOSE DELIVERED: 545.86mGy.cm Total DLP 545.86mGy.cm Total DLP DATA REPOSITORY: All CT scans at this facility are submitted to the National Radiology Data Registry (NRDR) Dose Index Registry (DIR) with the [employer] (ACR). RADIATION OPTIMIZATION: All CT scans at this facility use at least one of these dose optimization te chniques: automated exposure control; mA and/or kV adjustment per patient size (includes targeted exa ms where dose is matched to clinical indication); or iterative reconstruction.
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
[2022-06-10] MEDS: MORPHine 4 MG/ML SYR 3 MG IVP ×2 (01:36→17:37)
[2022-06-10] MEDS: Acetaminophen 500 MG TAB 1000 MG PO ×4 (05:52→21:20)
[2022-06-10 06:23] LABS: Abs Immature Grans 0.03 10^3/uL (0.0-0.06); Absolute Basophil Count 0.02 10^3/uL (0.0-0.2); Absolute Eosinophil Count 0.01 10^3/uL (0.0-0.7); Absolute Lymphocyte Count 1.29 10^3/uL (1.2-3.4); Basophils % 0.2; Eosinophils % 0.1; HCT 42.1 % (40.0-50.0); HGB 13.7 g/dL (13.5-17.5); Immature Grans % 0.2; Lymphocytes % 10.4; MCH 29.8 pg (27.0-33.0); MCHC 32.5 % (32.0-36.0); MCV 92 fL (80-95); MPV 12.4 fL (8.0-11.0); Monocytes % 6.8; Neutrophils % 82.3; Platelet Count 160 10^3/uL (130-400); RDW 12.4 % (11.8-14.1); RDW-SD 41.3 fL; WBC 12.43 10^3/uL (4.4-10.8)
[2022-06-10 06:27] LABS: Absolute Monocyte Count 0.85 10^3/uL (0.1-0.8); Absolute Neutrophil Count 10.23 10^3/uL (1.2-6.7)
[2022-06-10 06:41] LABS: ALT 45 U/L (16-63); AST 88 U/L (15-37); Albumin 3.4 g/dL (3.4-5.0); Alkaline Phosphatase 71 U/L (46-116); Anion Gap 7.5 mmol/L (3-11); BUN 13 mg/dL (7-18); Bilirubin, Direct 0.2 mg/dL (0.0-0.2); Bilirubin, Total 0.9 mg/dL (0.2-1.0); CO2 26.5 mmol/L (21.0-32.0); CREATININE 0.9 mg/dL (0.70-1.30); Calcium 8.4 mg/dL (8.5-10.1); Chloride 106 mmol/L (98-107); Estimated GFR 94.19 (mL/min/1.73m2); Glucose 114 mg/dL (74-106); Potassium 3.8 mmol/L (3.5-5.1); Sodium 140 mmol/L (136-145); Total Protein 6.1 g/dL (6.4-8.2)
--- NOTE | 2022-06-10 07:53 | W.PM.PROGNOT ---
Date of Service Date of service: 06/10/22 Time of Service: 07:53 Assessment and Plan Assessment and plan (1) Liver laceration, closed: Status: Acute Assessment and plan: I have interviewed and examined the patient, and agree with Susan Bill's note below. The patient has minor RUQ pain and tenderness, but no other significant pain or deficits. I explained that he will need to maintain his cervical collar for 2 weeks with follow-up with [facility], after getting x-rays. Also, I reviewed that he has a liver laceration and it is imperative that he stay as still as possible in bed. I detailed that we are monitoring his vital signs and blood counts closely to ensure that there is not significant ongoing bleeding. If there is a dramatic change, he may need an emergent transfer for IR embolization. --Heron Isidro MD Vital signs are stable. Patient describes his pain is being well controlled at this time. Discussed that he will require continued strict bed rest. This is a potentially life-threatening solid-organ injury from a very concerning mechanism of action. PLAN: #Crossmatch and hold 4 units of PRBCs #ICU with Q1H vitals signs for 24 hours #Strict Bedrest - 24 hours #No heparin DVT ppx #Q6H CBC - 24 hours #large-bore, multiple PIV access #low-threshold to transfer for IR embolization if Hgb starts to drop. The patient should NOT wait for hemodynamic instablity or large-volume transfer at which point he would be too unstable to transfer. Some dilution is expected to be seen, but a large drop in Hgb will be managed by transfer. #NPO except for ice chips, meds #analgesia prn (2) Closed nondisplaced fracture of seventh cervical vertebra: Status: Acute Assessment and plan: Management per spine surgery recommendations: #Hard collar at all times. #Q1H neuro checks for next 24 hours. #Any one-sided deficits will prompt repeat spine surgery consultation #Outpatient followup #Plain films of spine once he is cleared to be out of bed (3) Traumatic brain injury with brief (less than 1 hour) loss of consciousness: Status: Acute Assessment and plan: Mild TBI (GCS 14/15). No evidence of intracranial bleed. Expect post-conscussive symptoms and memory impairment short-term. #Q1 H neuro checks for the next 24 hours. #Any GCS decline warrants immediate repeat CT head without contrast. Subjective Subjective Interval history since last seen: Arrive with patient resting comfortably. He describes that he is not having much pain. Denies having any chest pain or SOB. Exam Const General: cooperative, healthy appearing and comfortable Orientation: alert and oriented x3 Resp Effort & Inspection: normal respiratory effort, no audible wheezes and no cough GI Inspection: normal to inspection Palpation: soft and tender in the RLQ and in the RUQ; with no rebound tenderness Neuro General: patient alert, patient awake and patient oriented x3 Speech: speech normal Motor: strength 5/5 throughout Objective Last Vital Signs Temp 36.4 C L 06/10/22 04:30 Pulse 57 L 06/10/22 05:00 Resp 13 06/10/22 05:30 BP 126/59 L 06/10/22 05:00 Pulse Ox 95 06/10/22 05:30 Laboratory Results - last 24 hr 06/09/22 06/09/22 06/09/22 15:35 15:35 15:35 WBC 10.91 H RBC 4.90 Hgb 14.7 Hct 44.8 MCV 91 MCH 30.0 MCHC 32.8 RDW 12.3 Plt Count 199 MPV 12.4 H Immature Gran % 0.6 Neutrophils % 73.8 Lymphocytes % 18.8 Monocytes % 5.2 Eosinophils % 0.9 Basophils % 0.7 Nucleated RBC % 0.0 Absolute Neutrophils 8.05 H Absolute Lymphocytes 2.05 Absolute Monocytes 0.57 Absolute Eosinophils 0.10 Absolute Basophils 0.08 PT 10.1 INR 1.0 APTT 24.5 VBG pH VBG pCO2 VBG pO2 VBG HCO3 VBG Total CO2 VBG O2 Saturation VBG Base Excess Sodium 141 Potassium 4.3 Chloride 107 Carbon Dioxide 26.6 Anion Gap 7.4 BUN 16 Creatinine 1.0 Est GFR (CKD-EPI 2020) 83.01 Glucose 134 H Calcium 9.3 Magnesium 2.1 Total Bilirubin 0.6 Conjugated Bilirubin AST 58 H ALT 35 Alkaline Phosphatase 87 Creatine Kinase Troponin I < 50 Total Protein 7.0 Albumin 4.2 Lipase 74 Urine Opiates Screen Urine Methadone Screen Ur Barbiturates Screen Ur Tricyclics Screen Ur Amphetamines Screen U Benzodiazepines Scrn Urine Cocaine Screen Ur THC Screen Ethyl Alcohol < 3.0 COVID-19 Source SARS-CoV-2 (PCR) Patient ABO/Rh Antibody Screen Crossmatch 06/09/22 06/09/22 06/09/22 15:35 15:35 17:30 WBC RBC Hgb Hct MCV MCH MCHC RDW Plt Count MPV Immature Gran % Neutrophils % Lymphocytes % Monocytes % Eosinophils % Basophils % Nucleated RBC % Absolute Neutrophils Absolute Lymphocytes Absolute Monocytes Absolute Eosinophils Absolute Basophils PT INR APTT VBG pH 7.42 H VBG pCO2 34 L VBG pO2 207 VBG HCO3 22 L VBG Total CO2 VBG O2 Saturation > 99 VBG Base Excess -2 Sodium Potassium Chloride Carbon Dioxide Anion Gap BUN Creatinine Est GFR (CKD-EPI 2020) Glucose Calcium Magnesium Total Bilirubin Conjugated Bilirubin AST ALT Alkaline Phosphatase Creatine Kinase 965 H Troponin I Total Protein Albumin Lipase Urine Opiates Screen Positive A Urine Methadone Screen Negative Ur Barbiturates Screen Negative Ur Tricyclics Screen Negative Ur Amphetamines Screen Negative U Benzodiazepines Scrn Negative Urine Cocaine Screen Negative Ur THC Screen Negative Ethyl Alcohol COVID-19 Source SARS-CoV-2 (PCR) Patient ABO/Rh Antibody Screen Crossmatch 06/09/22 06/09/22 06/09/22 19:45 20:00 22:35 WBC 16.87 H RBC 4.90 Hgb 15.0 Hct 44.6 MCV 91 MCH 30.6 MCHC 33.6 RDW 12.3 Plt Count 155 MPV 12.1 H Immature Gran % 0.4 Neutrophils % 91.9 Lymphocytes % 4.3 Monocytes % 3.2 Eosinophils % 0.0 Basophils % 0.2 Nucleated RBC % 0.0 Absolute Neutrophils 15.50 H Absolute Lymphocytes 0.73 L Absolute Monocytes 0.54 Absolute Eosinophils 0.00 Absolute Basophils 0.03 PT INR APTT VBG pH VBG pCO2 VBG pO2 VBG HCO3 VBG Total CO2 VBG O2 Saturation VBG Base Excess Sodium Potassium Chloride Carbon Dioxide Anion Gap BUN Creatinine Est GFR (CKD-EPI 2020) Glucose Calcium Magnesium Total Bilirubin Conjugated Bilirubin AST ALT Alkaline Phosphatase Creatine Kinase Troponin I Total Protein Albumin Lipase Urine Opiates Screen Urine Methadone Screen Ur Barbiturates Screen Ur Tricyclics Screen Ur Amphetamines Screen U Benzodiazepines Scrn Urine Cocaine Screen Ur THC Screen Ethyl Alcohol COVID-19 Source Nasal/Nares SARS-CoV-2 (PCR) Negative Patient ABO/Rh O Positive Antibody Screen NEGATIVE Crossmatch See Detail 06/10/22 06/10/22 05:30 05:30 WBC 12.43 H RBC 4.60 Hgb 13.7 Hct 42.1 MCV 92 MCH 29.8 MCHC 32.5 RDW 12.4 Plt Count 160 MPV 12.4 H Immature Gran % 0.2 Neutrophils % 82.3 Lymphocytes % 10.4 Monocytes % 6.8 Eosinophils % 0.1 Basophils % 0.2 Nucleated RBC % 0.0 Absolute Neutrophils 10.23 H Absolute Lymphocytes 1.29 Absolute Monocytes 0.85 H Absolute Eosinophils 0.01 Absolute Basophils 0.02 PT INR APTT VBG pH VBG pCO2 VBG pO2 VBG HCO3 VBG Total CO2 VBG O2 Saturation VBG Base Excess Sodium 140 Potassium 3.8 Chloride 106 Carbon Dioxide 26.5 Anion Gap 7.5 BUN 13 Creatinine 0.9 Est GFR (CKD-EPI 2020) 94.19 Glucose 114 H Calcium 8.4 L Magnesium Total Bilirubin 0.9 Conjugated Bilirubin 0.2 AST 88 H ALT 45 Alkaline Phosphatase 71 Creatine Kinase Troponin I Total Protein 6.1 L Albumin 3.4 Lipase Urine Opiates Screen Urine Methadone Screen Ur Barbiturates Screen Ur Tricyclics Screen Ur Amphetamines Screen U Benzodiazepines Scrn Urine Cocaine Screen Ur THC Screen Ethyl Alcohol COVID-19 Source SARS-CoV-2 (PCR) Patient ABO/Rh Antibody Screen Crossmatch PAWSS Have you Been Recently Intoxicated or Drunk Within the Last 30 days?: No Have you Ever Experienced Previous Episodes of Alcohol Withdrawal?: No Have you ever Experienced Withdrawal Seizures?: No Have you ever Experienced Delirium Tremens(DT)s?: No Have you ever undergone Alcohol Rehabilitation Treatment (i.e, inpt ot outpatient treatment programs)?: No Have you ever Experienced Blackouts?: No Have you ever Combined Alcohol with other Downers within the last 90 days?: No Have you ever Combined Alcohol with any other Substance of Abuse during the last 90 days?: No Positive Blood Alcohol level on Presentation? [PCS.BAL]: No Evidence of Increased Autonomic Activity (i.e. HR>120, tremor, sweating, agitation, nausea)?: No Result: 0 Time Spent with Patient Time Spent with Patient: <25 minutes Time was spent: preparing to see the patient(eg.review tests)
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
--- NOTE | 2022-06-10 13:19 | NUR.NOTE ---
CBC is drawn.Nursing Note:
[2022-06-10 13:26] LABS: HCT 44.4 % (40.0-50.0); HGB 14.6 g/dL (13.5-17.5); MCH 29.7 pg (27.0-33.0); MCHC 32.9 % (32.0-36.0); MCV 90 fL (80-95); MPV 11.8 fL (8.0-11.0); Platelet Count 178 10^3/uL (130-400); RBC 4.92 10^6/uL (4.36-5.78); RDW 12.3 % (11.8-14.1); RDW-SD 40.8 fL
[2022-06-10 13:58] LABS: WBC 12.53 10^3/uL (4.4-10.8)
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
--- NOTE | 2022-06-10 17:15 | RT.EKG_ITS ---
APPROVED REPORT Exam: Resting ECG Reason for Exam: L-sided pain Patient Location: I HR:75 bpm ECG Measurements Heart Rate 75 AXIS WY 138 P 77 QRSd 84 QRS 79 QT 410 T 56 QTc 458 Conclusion Sinus rhythm...normal P axis, V-rate 50- 99
[2022-06-10] MEDS: Normal Saline Flush 10 ML SYR IVP ×2 (17:37→21:21)
[2022-06-10] MEDS: Ondansetron 4 MG/2 ML VIAL IVP (17:37)
[2022-06-10 17:43] LABS: HCT 44.5 % (40.0-50.0); HGB 14.7 g/dL (13.5-17.5); MCH 29.6 pg (27.0-33.0); MCV 90 fL (80-95); Platelet Count 199 10^3/uL (130-400); RBC 4.96 10^6/uL (4.36-5.78); RDW 12.2 % (11.8-14.1); WBC 13.44 10^3/uL (4.4-10.8)
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
[2022-06-10] MEDS: Methocarbamol 750 MG TAB PO (17:57)
[2022-06-10 18:01] LABS: Troponin I < 50 ng/L (<or=60)
[2022-06-10] MEDS: Omnipaque 350 MG/ML 100 ML BTL IJ (18:22)
[2022-06-10] MEDS: Normal Saline - Diluent 50 ML VIAL IJ ×2 (18:36→18:47)
--- NOTE | 2022-06-10 19:32 | PGE_ITS ---
Date of Service Date of service: 06/10/22 Time of Service: 19:33 Assessment and Plan Assessment and plan (1) Radicular pain of left upper extremity: Status: Acute Assessment and plan: Given the change in neurologic status, a Hospitalist consult was placed, and repeat spine CT, and LUE CT were ordered. Upon returning from CT scan, the patient stated that his symptoms were r esolving. He felt that his sensation was even bilaterally, and the numbness/tingling was improving. His cervical collar was noted to be slightly adjusted, compared to prior. It is theorized that the initial positioning of the C-collar was causing a transient compressive brachial plexus neuropraxia. --will continue q1 hr neuro checks overnight --elevate head of bed, with flexion at the hips --maintain cervical collar with special attention to pressure points --appreciate Hospitalist input/evaluation (2) Closed nondisplaced fracture of seventh cervical vertebra: Status: Acute Assessment and plan: Based on CT scan, there does not appear to be a change in the fracture status. --Maintain cervical collar with careful attention to pressure points --physical therapy consult tomorrow (3) Liver laceration, closed: Status: Acute Assessment and plan: s/p traumatic grade II liver laceration --H/H stable --hemodynamicaly stable --physical therapy consult tomorrow --advance diet as tolerated Subjective Subjective Interval history since last seen: Called to evaluate patient secondary to increased pain and numbness/tingling to left upper extremity. The pt states that he thinks he was having some discomfort in the left upper arm previously, but it was exacerbated when he had a blood pressure cuff on the arm earlier and he was rotated to that side. He complained of altered sensation along the dorsal surface of the arm with some numbeness/tingling to the hand. Exam Const General: cooperative, healthy appearing and anxious Neck Other: Cervical collar in place; prior to going to CT, we noted that there may be some impingement by the C-collar just superior to left the clavicle Resp Effort & Inspection: normal respiratory effort and able to speak in complete sentences Cardio Rate: regular rate Rhythm: regular rhythm GI Inspection: normal to inspection and no abdominal wall ecchymosis Palpation: soft, no guarding and tender (mild RUQ tenderness) Skin Other: mild ecchymosis to medial LUE Neuro General: patient alert, patient awake and patient oriented x3 Motor: strength abnormal (upper left 4.5/right 5; lower 5/5 bilaterally) Sensory Exam: upper extremity (Sensation present bilaterally but different/uneven from left to right) Objective Last Vital Signs Temp 98.4 F 06/10/22 13:59 Pulse 78 06/10/22 16:11 Resp 12 06/10/22 16:11 BP 157/78 H 06/10/22 16:11 Pulse Ox 96 06/10/22 16:11 Laboratory Results - last 24 hr 06/09/22 06/09/22 06/09/22 15:35 19:45 20:00 WBC RBC Hgb Hct MCV MCH MCHC RDW Plt Count MPV Immature Gran % Neutrophils % Lymphocytes % Monocytes % Eosinophils % Basophils % Nucleated RBC % Absolute Neutrophils Absolute Lymphocytes Absolute Monocytes Absolute Eosinophils Absolute Basophils VBG Total CO2 Sodium Potassium Chloride Carbon Dioxide Anion Gap BUN Creatinine Est GFR (CKD-EPI 2020) Glucose Calcium Total Bilirubin Conjugated Bilirubin AST ALT Alkaline Phosphatase Troponin I Total Protein Albumin COVID-19 Source Nasal/Nares SARS-CoV-2 (PCR) Negative Patient ABO/Rh O Positive Antibody Screen NEGATIVE Crossmatch See Detail 06/09/22 06/10/22 06/10/22 22:35 05:30 05:30 WBC 16.87 H 12.43 H RBC 4.90 4.60 Hgb 15.0 13.7 Hct 44.6 42.1 MCV 91 92 MCH 30.6 29.8 MCHC 33.6 32.5 RDW 12.3 12.4 Plt Count 155 160 MPV 12.1 H 12.4 H Immature Gran % 0.4 0.2 Neutrophils % 91.9 82.3 Lymphocytes % 4.3 10.4 Monocytes % 3.2 6.8 Eosinophils % 0.0 0.1 Basophils % 0.2 0.2 Nucleated RBC % 0.0 0.0 Absolute Neutrophils 15.50 H 10.23 H Absolute Lymphocytes 0.73 L 1.29 Absolute Monocytes 0.54 0.85 H Absolute Eosinophils 0.00 0.01 Absolute Basophils 0.03 0.02 VBG Total CO2 Sodium 140 Potassium 3.8 Chloride 106 Carbon Dioxide 26.5 Anion Gap 7.5 BUN 13 Creatinine 0.9 Est GFR (CKD-EPI 2020) 94.19 Glucose 114 H Calcium 8.4 L Total Bilirubin 0.9 Conjugated Bilirubin 0.2 AST 88 H ALT 45 Alkaline Phosphatase 71 Troponin I Total Protein 6.1 L Albumin 3.4 COVID-19 Source SARS-CoV-2 (PCR) Patient ABO/Rh Antibody Screen Crossmatch 06/10/22 06/10/22 06/10/22 13:20 17:33 17:33 WBC 12.53 H 13.44 H RBC 4.92 4.96 Hgb 14.6 14.7 Hct 44.4 44.5 MCV 90 90 MCH 29.7 29.6 MCHC 32.9 33.0 RDW 12.3 12.2 Plt Count 178 199 MPV 11.8 H 12.0 H Immature Gran % Neutrophils % Lymphocytes % Monocytes % Eosinophils % Basophils % Nucleated RBC % Absolute Neutrophils Absolute Lymphocytes Absolute Monocytes Absolute Eosinophils Absolute Basophils VBG Total CO2 Sodium Potassium Chloride Carbon Dioxide Anion Gap BUN Creatinine Est GFR (CKD-EPI 2020) Glucose Calcium Total Bilirubin Conjugated Bilirubin AST ALT Alkaline Phosphatase Troponin I < 50 Total Protein Albumin COVID-19 Source SARS-CoV-2 (PCR) Patient ABO/Rh Antibody Screen Crossmatch Objective Narrative Objective Narrative: CT c-spine (06/10/2022): IMPRESSION: 1. No significant change in appearance of left C7 transverse process fracture. Severe left neural foraminal narrowing at this level secondary to fracture fragments. Mild spinal canal stenosis noted. 2. Additional multilevel degenerative changes as described. CT LUEv(06/10/2022): No acute fracture or dislocation PAWSS Have you Been Recently Intoxicated or Drunk Within the Last 30 days?: No Have you Ever Experienced Previous Episodes of Alcohol Withdrawal?: No Have you ever Experienced Withdrawal Seizures?: No Have you ever Experienced Delirium Tremens(DT)s?: No Have you ever undergone Alcohol Rehabilitation Treatment (i.e, inpt ot outpatient treatment programs)?: No Have you ever Experienced Blackouts?: No Have you ever Combined Alcohol with other Downers within the last 90 days?: No Have you ever Combined Alcohol with any other Substance of Abuse during the last 90 days?: No Positive Blood Alcohol level on Presentation? [PCS.BAL]: No Evidence of Increased Autonomic Activity (i.e. HR>120, tremor, sweating, agitation, nausea)?: No Result: 0 Time Spent with Patient Time Spent with Patient: >50 minutes Time was spent: preparing to see the patient(eg.review tests), obtaining and/or reviewing separately otained hiistory, ordering medications,tests, procedures, referring, communicating with other health healthcare receptionist, indepentently interpreting results and counseling the patient
--- NOTE | 2022-06-10 19:33 | DI.VRAD_ITS ---
PROCEDURE INFORMATION: Exam: CT Cervical Spine Without Contrast Exam date and time: 06/10/2022 6:32 PM Age: 66 years old Clinical indication: Follow up c spine fracture TECHNIQUE: Imaging protocol: Computed tomography of the cervical spine without contrast. COMPARISON: CT HEAD CERVICAL SPINE WO 06/09/2022 3:36 PM FINDINGS: Bones/joints: There is no significant change in appearance of sagittally oriented fracture through the left transverse process of C7. There is also fracture of the adjacent osteophyte anteriorly. There is severe neural foraminal narrowing at the left C6-C7 level secondary to fracture fragments. Prominent facet arthropathy noted at the right C7-T1 level. Multilevel degenerative disc disease, uncovertebral and facet arthropathy noted with prominent neural foraminal narrowing at the right C3-C4, C5-C6 and C6-C7 levels. Lungs: Lung apices are normal. Soft tissues: Unremarkable. IMPRESSION: 1. No significant change in appearance of left C7 transverse process fracture. Severe left neural foraminal narrowing at this level secondary to fracture fragments. Mild spinal canal stenosis noted. 2. Additional multilevel degenerative changes as described. Dictated and Authenticated by: Gayatri Silveira MD. Ordering:MARANDA Garber MD
--- NOTE | 2022-06-10 19:40 | DI.VRAD_ITS ---
PROCEDURE INFORMATION: Exam: CT Left Upper Extremity With Contrast, Shoulder Exam date and time: 06/10/2022 6:35 PM Age: 66 years old Clinical indication: Other: Lue pain post trauma TECHNIQUE: Imaging protocol: Computed tomography of the Left upper extremity with contrast. Exam focused on the shoulder Contrast material: 350; Contrast volume: 100 ml; Contrast route: INTRAVENOUS (IV); COMPARISON: CT CERVICAL SPINE WO 06/10/2022 6:32 PM FINDINGS: Bones/joints: No evidence of significant fracture or dislocation. Osteoarthritic degenerative changes noted at the left acromioclavicular joint with joint space narrowing, osteophytosis and subchondral sclerosis. Soft tissues: No significant subcutaneous soft tissue abnormality seen. IMPRESSION: No acute fracture or dislocation. Dictated and Authenticated by: Gayatri Silveira MD. Ordering:MARANDA Garber MD
[2022-06-10] MEDS: Docusate Sodium 100 MG CAP PO (21:19)
[2022-06-10] MEDS: Normal Saline 1,000 ML 75 ML IV (21:52)
[2022-06-11] VITALS (61 sets, daily range): BP systolic 114–172; BP diastolic 57–89; PULSE 55–88; RESP 10–26; TEMP 36.3–36.9; O2SAT 93–98
--- NOTE | 2022-06-11 01:09 | NUR.NOTE ---
Nursing Note: Patient was found with 18g PIV in the Right Medial AC region pulled out and IV fluids infusing into bed. Pressure applied until bleeding resolved. Bed Linens changed and patient cleaned. Fresh Linens.
--- NOTE | 2022-06-11 01:45 | NUR.NOTE ---
Nursing Note: With Log Roll repositioning to left side down patient was initially apprehensive secondary to earlier numbness and tingling that patient felt. Reassessment of patient at this time, he denies any discomfort/numbness/tingling. IV site is patent and patient was offered the urinal and declined at this time.
[2022-06-11] MEDS: Acetaminophen 500 MG TAB 1000 MG PO ×3 (02:14→23:31)
[2022-06-11 06:20] LABS: HCT 42.8 % (40.0-50.0); HGB 13.9 g/dL (13.5-17.5); MCH 30.1 pg (27.0-33.0); MCHC 32.5 % (32.0-36.0); MCV 93 fL (80-95); MPV 12.6 fL (8.0-11.0); Platelet Count 171 10^3/uL (130-400); RBC 4.62 10^6/uL (4.36-5.78); RDW 12.6 % (11.8-14.1); RDW-SD 42.9 fL; WBC 10.68 10^3/uL (4.4-10.8)
[2022-06-11 06:34] LABS: Anion Gap 8.9 mmol/L (3-11); BUN 19 mg/dL (7-18); CO2 25.1 mmol/L (21.0-32.0); CREATININE 0.9 mg/dL (0.70-1.30); Calcium 8.6 mg/dL (8.5-10.1); Chloride 106 mmol/L (98-107); Estimated GFR 94.19 (mL/min/1.73m2); Glucose 91 mg/dL (74-106); Potassium 3.7 mmol/L (3.5-5.1); Sodium 140 mmol/L (136-145)
[2022-06-11] MEDS: Docusate Sodium 100 MG CAP PO (08:53)
--- NOTE | 2022-06-11 10:03 | CMPROGNOTE_ITS ---
- If Service Date Differs Date of service: 06/11/22 Time of Service: 10:03 Care Management Progress Note S/O: Damien's daughter from Ct is planning on staying with him for a short time following discharge since he lives alone. PT consult is ordered. Per Dr. Isidro, Damien will need to wear his neck brace for 4 weeks and will follow up at [facility] [place] [facility] in 4 weeks. A: 66 year old male admitted to [facility] on 06/09/22 for trauma, liver laceration P: Damien is being closely monitored in the ICU currently. He will likely return home when medically cleared. He will follow up with his PCP and discharge plan of care. CM will continue to follow.
--- NOTE | 2022-06-11 11:09 | NUR.NOTE ---
RN notifies [facility] of possibility of transfer to Med/Surg later this afternoon.Nursing Note:
--- NOTE | 2022-06-11 13:25 | W.PM.PROGNOT ---
Date of Service Date of service: 06/11/22 Time of Service: 11:00 Assessment and Plan Assessment and plan (1) Radicular pain of left upper extremity: Status: Acute Assessment and plan: These symptoms have seemed to resolved. Besides minor discomfort, the patient is without complaints, nor the same deficits he was experiencing yesterday evening. (2) Closed nondisplaced fracture of seventh cervical vertebra: Status: Acute Assessment and plan: Based on CT scan, there does not appear to be a change in the fracture status. Images were reviewed with Dr. Bishop of Radiology. --will reconsult [place] [facility] to ensure no further recommendations prior to discharge --Maintain cervical collar with careful attention to pressure points --physical therapy consult (3) Liver laceration, closed: Status: Acute Assessment and plan: s/p traumatic grade II liver laceration --H/H stable --hemodynamically stable --physical therapy consult --advance diet as tolerated Subjective Subjective Interval history since last seen: The patient is feeling well today. He states most of the symptoms he was having in the left upper extremity are improved today. He admits to a little pain, but he feels like his sensation is normal without further numbness/tingling. He was able to sit up and have clears for breakfast, with increase in pain or nausea/vomiting. Exam Const General: cooperative and healthy appearing Nutritional Appearance: average body habitus and well nourished Eyes EOM: EOM intact bilaterally Neck Other: Cervical collar in place; no impingement noted Resp Effort & Inspection: normal respiratory effort and able to speak in complete sentences Auscultation: clear to auscultation bilaterally Cardio Rate: regular rate Rhythm: regular rhythm GI Inspection: normal to inspection and no abdominal wall ecchymosis Palpation: soft, no guarding and tender (mild RUQ tenderness) Auscultation: normal bowel sounds Back/Spine/Pelvis Cervical Spine: collar present Skin Other: mild ecchymosis to medial LUE Neuro General: patient alert, patient awake and patient oriented x3 Cognition: normal cognition Motor: strength 5/5 throughout Sensory Exam: no sensory deficits noted Extrem Other: SCDs present to LE bilaterally Psych Mood: congruent mood Affect: normal affect Thought Process: normal Thought Content: normal Objective Last Vital Signs Temp 98.1 F 06/11/22 09:00 Pulse 58 L 06/11/22 10:00 Resp 14 01/27/23 10:30 BP 137/70 06/11/22 10:00 Pulse Ox 96 06/11/22 10:30 Laboratory Results - last 24 hr 06/09/22 06/10/22 06/10/22 20:00 13:20 17:33 WBC 12.53 H 13.44 H RBC 4.92 4.96 Hgb 14.6 14.7 Hct 44.4 44.5 MCV 90 90 MCH 29.7 29.6 MCHC 32.9 33.0 RDW 12.3 12.2 Plt Count 178 199 MPV 11.8 H 12.0 H Sodium Potassium Chloride Carbon Dioxide Anion Gap BUN Creatinine Est GFR (CKD-EPI 2020) Glucose Calcium Troponin I Crossmatch See Detail 06/10/22 06/11/22 06/11/22 17:33 05:15 05:15 WBC 10.68 RBC 4.62 Hgb 13.9 Hct 42.8 MCV 93 MCH 30.1 MCHC 32.5 RDW 12.6 Plt Count 171 MPV 12.6 H Sodium 140 Potassium 3.7 Chloride 106 Carbon Dioxide 25.1 Anion Gap 8.9 BUN 19 H Creatinine 0.9 Est GFR (CKD-EPI 2020) 94.19 Glucose 91 Calcium 8.6 Troponin I < 50 Crossmatch PAWSS Have you Been Recently Intoxicated or Drunk Within the Last 30 days?: No Have you Ever Experienced Previous Episodes of Alcohol Withdrawal?: No Have you ever Experienced Withdrawal Seizures?: No Have you ever Experienced Delirium Tremens(DT)s?: No Have you ever undergone Alcohol Rehabilitation Treatment (i.e, inpt ot outpatient treatment programs)?: No Have you ever Experienced Blackouts?: No Have you ever Combined Alcohol with other Downers within the last 90 days?: No Have you ever Combined Alcohol with any other Substance of Abuse during the last 90 days?: No Positive Blood Alcohol level on Presentation? [PCS.BAL]: No Evidence of Increased Autonomic Activity (i.e. HR>120, tremor, sweating, agitation, nausea)?: No Result: 0 Time Spent with Patient Time Spent with Patient: 35-49 minutes Time was spent: preparing to see the patient(eg.review tests), obtaining and/or reviewing separately otained hiistory, ordering medications,tests, procedures, referring, communicating with other health career development counselor, indepentently interpreting results and counseling the patient
--- NOTE | 2022-06-11 13:42 | NUR.NOTE ---
Patient's daughter visits in room and is present when physical therapist is working with patient.Nursing Note:
[2022-06-11] MEDS: MORPHine 4 MG/ML SYR 3 MG IVP (14:49)
--- NOTE | 2022-06-11 16:08 | W.PM.PROGNOT ---
Date of Service Date of service: 06/11/22 Time of Service: 16:08 Subjective Subjective Interval history since last seen: Hospitalists are signing off. Please, reconsult if needed. Objective Last Vital Signs Temp 36.7 C 06/11/22 09:00 Pulse 58 L 06/11/22 10:00 Resp 14 06/11/22 10:30 BP 137/70 06/11/22 10:00 Pulse Ox 96 06/11/22 10:30 Laboratory Results - last 24 hr 06/09/22 06/10/22 06/10/22 20:00 17:33 17:33 WBC 13.44 H RBC 4.96 Hgb 14.7 Hct 44.5 MCV 90 MCH 29.6 MCHC 33.0 RDW 12.2 Plt Count 199 MPV 12.0 H Sodium Potassium Chloride Carbon Dioxide Anion Gap BUN Creatinine Est GFR (CKD-EPI 2020) Glucose Calcium Troponin I < 50 Crossmatch See Detail 06/11/22 06/11/22 05:15 05:15 WBC 10.68 RBC 4.62 Hgb 13.9 Hct 42.8 MCV 93 MCH 30.1 MCHC 32.5 RDW 12.6 Plt Count 171 MPV 12.6 H Sodium 140 Potassium 3.7 Chloride 106 Carbon Dioxide 25.1 Anion Gap 8.9 BUN 19 H Creatinine 0.9 Est GFR (CKD-EPI 2020) 94.19 Glucose 91 Calcium 8.6 Troponin I Crossmatch PAWSS Have you Been Recently Intoxicated or Drunk Within the Last 30 days?: No Have you Ever Experienced Previous Episodes of Alcohol Withdrawal?: No Have you ever Experienced Withdrawal Seizures?: No Have you ever Experienced Delirium Tremens(DT)s?: No Have you ever undergone Alcohol Rehabilitation Treatment (i.e, inpt ot outpatient treatment programs)?: No Have you ever Experienced Blackouts?: No Have you ever Combined Alcohol with other Downers within the last 90 days?: No Have you ever Combined Alcohol with any other Substance of Abuse during the last 90 days?: No Positive Blood Alcohol level on Presentation? [PCS.BAL]: No Evidence of Increased Autonomic Activity (i.e. HR>120, tremor, sweating, agitation, nausea)?: No Result: 0 Time Spent with Patient Time Spent with Patient: <25 minutes Time was spent: referring, communicating with other health care asst
--- NOTE | 2022-06-11 16:48 | IN_ITS ---
Date of service: 06/11/22 Time of Service: 12:53 PT Notes Visit Reasons: Liver Laceration Physical Therapy Inpatient Initial Evaluation Date: 06/11/2022 Referring Doctor: Tatum Isidro MD PT Orders: PT CONSULT: Limited ability. New TBI, cervical fracture with C- collar in place Precautions: Fall. Standard. [place] J advanced cervical collar in place AT ALL TIMES even with hygiene per [facility] ortho. Patient Profile/Admitting Diagnosis: Damien is a 66-year-old male who encountered a skiing accident that resulted to fracture of the left transverse process and facet of C7 and C7 osteophyte fracture anteriorly with neural foraminal narrowing at C6-C7 level due to fracture fragments. Imaging of the left upper extremity showed no fracture nor dislocation. PMHX: All Active Problems?(Updated 06/09/22 @ 19:54 by Cruz Clarke DO) Concussion (Acute) Closed nondisplaced fracture of seventh cervical vertebra (Acute) Liver laceration, closed (Acute) Injury due to skiing accident (Acute) Tinea pedis (Acute) BPH NOS w/o ur obs/LUTS (Acute) Elevated BP without diagnosis of hypertension (Acute) Seasonal allergic rhinitis due to pollen (Acute) Migraine with aura and without status migrainosus, not intractable (Acute) Nasal polyp (Chronic) Elevated LDL cholesterol level (Chronic) Family history of Alzheimer's disease (Acute 10/04/17) History of tobacco use (Acute) Injury of eye region (Acute) Nasal septal deviation (Acute 10/04/17) Medical History?(Updated 06/09/22 @ 19:54 by Cruz Clarke DO) Nasal septal deviation Surgical History? colonoscopy (12/26/17) Colonoscopy - MAC (~2006) eye surgery left Tonsillectomy Social History/Home Situation: Recently retired. Independent with all aspects of ADLs prior to admission. Equipment Owned/DME: None Subjective: Patient reports shock-like pain in mid back and L UE worst during supine to sit and sit to stand movement transitions. Denies headache but reports momentary dizziness with supine to sit, resolves with upright positioning/walking. States that daughter will be with him for the next two weeks at home to help out with everything. Son-in-law also coming over to provide additional support. Objective: General Observation: Willy Dennis advanced cervical collar in place. Telemetry monitoring in place. Palpation: Severe muscle guarding of upper, mid, and lower traps on the L side, unable to move L scapula Mental Status: Alert and oriented as to person, place, time, and purpose. Able to pay attention, focus, and respond appropriately. Pain: 8/10 in midback and L UE aggravated by movement Vital Signs: 160s/70s mmHg before start of session, SAO2 above 90% throughout on RA ROM: Right Upper Extremity: Shoulder Flexion NT. Shoulder abduction NT. Elbow flexion WFL. Wrist flexion WFL. Functional opening and closing of hand WFL. Left Upper Extremity: Shoulder Flexion NT. Shoulder abduction NT. Elbow flexion WFL. Elbow extension WFL. Wrist flexion WFL. Functional opening and closing of hand WFL. Right Lower Extremity: Hip flexion WFL. Hip abduction WFL. Knee flexion WFL. Ankle dorsiflexion WFL. Ankle plantarflexion WFL. Left Lower Extremity: Hip flexion WFL. Hip abduction WFL. Knee flexion WFL. Ankle dorsiflexion WFL. Ankle plantarflexion WFL. Strength: Right Upper Extremity: Shoulder flexors NT. Shoulder abductors NT. Elbow flexors []/5. Elbow extensors []/5. Laundry Equipment Operator strong. Left Upper Extremity: Shoulder flexors NT. Shoulder abductors NT. Elbow flexors 4-/5. Elbow extensors 3/5. Laundry Equipment Operator weaker than L. Right Lower Extremity: Hip flexors 5/5. Hip abductors 5/5. Knee flexors 5/5. Knee extensors 5/5. Ankle dorsiflexors 5/5. Ankle plantarflexors 5/5. Left Lower Extremity: Hip flexors 5/5. Hip abductors 5/5. Knee flexors 5/5. Knee extensors 5/5. Ankle dorsiflexors 5/5. Ankle plantarflexors 5/5. Bed Mobility/Transfers: Quarter turn to R contact guard assist to L UE R hand pulls on R bed rail for support R quarter turn to sit with R hand pulling on R rail minimal assist to mid back with HOB at 45 degrees Sit to supine minimal assist to mid back Sit to stand from an elevated bed height with back in neutral erect position to minimize pain stand by assist Bed to reclining chair stand by assist with SPC Stand to sit onto high chair stand by assist with SPC. L UE needs to be supported by pillows. Gait: Instructed patient with level surface ambulation of 15 feet requiring contact guard assist with report of electric-shock like pain when L UE is hanging by the side. Patient has the least pain with the L forearm resting on his upper abdominal area. Stable with use of SPC. Denied dizziness during the short walk. Balance: Static Sitting: Normal Dynamic Sitting: Fair Static Standing: Fair Dynamic Standing: Fair Special Tests: Mobility Limitations Standardized Measure [facility] AM-PAC 6 clicks Basic Mobility Inpatient Short Form: Raw Score: 15 CMS Score: 58% deficit Neuro: GCS score 15: Spontaneous eye opening, oriented x 3, obeys motor responses. C7 myotome triceps and wrist extensors 3/5 Informed Consent/Education: Patient was instructed in purpose of PT consult and plan of care. Agreeable to proceed with established PT POC to achieve personal goals. Assessment: Patient demonstrating L C6-C7 radiculopathy resulting from C7 TP, upper facet and osteophyte fracture sustained from skiing accident. L shoulder girdle muscles in severe guarding. Shooting subscapular pain occurs with partial side lying to sit movement transition, question L lower trap muscle tear vs severe L muscle strain vs upper brachial plexopathy. Ensure that collar is adjusted as needed to ensure optimal fit. Will need to tolerate sitting as patient plans on going to daughter's house in [place] should he need continued assistance beyond 2 weeks. Able to tolerate ambulation using SPC. Patient presents with clinical signs and symptoms consistent with current/admitting diagnoses that have resulted to mobility limitations, gait i nstability, generalized weakness, and overall ADL decline as demonstrated by the following impairment level findings: 1. Decreased strength to L triceps 2. Decreased balance awareness due to collar use 3. Impaired activity tolerance 4. Pain in L scapula and L UE aggarvated by movement/positional change Impairments are contributing to the following functional limitations: 1. Decline in bed mobility skills 2. Decline in transfer skills 3. Difficulty with ambulation without assistive device and physical assistance 4. Increased completion time for mobility ADL performance 5. Increased risk for falls Patient is assessed as a 24347 moderate complexity based on the following: History: 66-year-old male with past medical history as indicated above Examination: Demonstrable impairment in strength, balance, and mobility level with underlying impairments and functional limitations as exhibited above as well as deficit score of 58% utilizing the [facility] Mobility Inpatient Short Form Presentation: Evolving Decision Makin moderate complexity Goals: Goals X1 week 1. Supine-Sit independent 2. Sit-Supine independent 3. Sit-Stand independent 4. Stand-Sit independent with SPC 5. Bed-Chair independent with SPC 6. Chair-Bed independent with SPC 7. Independent gait on level surface with use of SPC for at least 300 feet without report of pain nor dyspnea 8. Independent stair negotiation while holding onto B rails for at least 5 steps without report of pain nor dyspnea 9. Independent with home exercise program 10. Good static and dynamic standing balance/tolerance Plan of Care/Treatment Plan: 1-2x/day, 7 days/week x 1 week. Plan of care has been reviewed with the SAW MAN providing the service under Physical Therapy direction. Initiate Physical Therapy intervention for pain management as needed, strengthening, bed mobility, transfers, gait, stairs, balance training, and use of assistive device. DISCHARGE RECOMMENDATIONS: [] Home with no services [] [] Home with services [specify] [] Home with outpatient PT [] [] SNF for continued rehabilitation [] [] Retirement Care [] [] SNF versus LTC based on ability to participate and progress [] [X] HHPT vs. SNF until seen by [facility] ortho after 2 weeks TREATMENT CODE/TIME: 88995 x 27 minutes, 58323 x 33 minutes beginning at 12:53 PM, 4:00 PM, and 4:48 PM. Thank you for the opportunity to participate in the care of this patient. Lidya Hanson PT, DPT, CLT [facility] [place], [place]
[2022-06-11] MEDS: Lidocaine 5% Patch 1 PATCH TP (17:05)
[2022-06-11] MEDS: oxyCODONE 5 MG TAB PO (23:42)
[2022-06-12] VITALS (27 sets, daily range): BP systolic 97–190; BP diastolic 56–92; PULSE 55–86; RESP 11–24; TEMP 36.6–37.1; O2SAT 95–96
[2022-06-12] MEDS: MORPHine 4 MG/ML SYR 3 MG IVP (01:25)
[2022-06-12 06:13] LABS: HCT 43.9 % (40.0-50.0); HGB 14.2 g/dL (13.5-17.5); MCH 29.9 pg (27.0-33.0); MCHC 32.3 % (32.0-36.0); MCV 92 fL (80-95); MPV 12.1 fL (8.0-11.0); Platelet Count 175 10^3/uL (130-400); RBC 4.75 10^6/uL (4.36-5.78); RDW 12.3 % (11.8-14.1); RDW-SD 42.5 fL; WBC 9.69 10^3/uL (4.4-10.8)
[2022-06-12 06:28] LABS: Anion Gap 6.5 mmol/L (3-11); BUN 17 mg/dL (7-18); CO2 28.5 mmol/L (21.0-32.0); Calcium 8.5 mg/dL (8.5-10.1); Chloride 107 mmol/L (98-107); Estimated GFR 83.01 (mL/min/1.73m2); Glucose 102 mg/dL (74-106); Potassium 3.9 mmol/L (3.5-5.1); Sodium 142 mmol/L (136-145)
[2022-06-12] MEDS: Methocarbamol 750 MG TAB PO ×3 (08:00→19:36)
[2022-06-12] MEDS: oxyCODONE 5 MG TAB PO ×2 (08:00→21:03)
[2022-06-12] MEDS: Acetaminophen 500 MG TAB 1000 MG PO ×2 (08:00→19:36)
[2022-06-12] MEDS: LIDOCAINE Patch Removal 1 EACH TP (09:00)
[2022-06-12] MEDS: Docusate Sodium 100 MG CAP PO ×2 (09:00→19:37)
--- NOTE | 2022-06-12 10:21 | PGE_ITS ---
Date of Service Date of service: 06/12/22 Time of Service: 10:21 Assessment and Plan Assessment and plan (1) Radicular pain of left upper extremity: Status: Acute Assessment and plan: Pt is still experiencing some spasms and discomfort in left upper back --lidoderm patch --robaxin --OOB to chair --Physical therapy (2) Closed nondisplaced fracture of seventh cervical vertebra: Status: Acute Assessment and plan: Based on CT scan, there does not appear to be a change in the fracture status. Images were reviewed with Dr. Bishop of Radiology. --Maintain cervical collar with careful attention to pressure points --physical therapy recommended HHPT vs. SNF upon discharge, will discuss with case management, pt, and family (3) Liver laceration, closed: Status: Acute Assessment and plan: s/p traumatic grade II liver laceration. Concern for ongoing/worsening injury is decreased. --limit bending, twisting, turning; aggressive activity --H/H stable --hemodynamically stable --will convert to MedSurg status Subjective Subjective Interval history since last seen: Pt states he has noticed more left upper back pain now that he has become more mobile, but no new numbness/tingling or weakness. He is tolerating a diet, and passing gas, but no bowel movement. Still requiring morphine for breakthrough pain. Denies TRAORE, dizziness, difficulty swallowing, chest pain, SOB, new abdominal pain, or lower extremitiy discomfort. Exam Const General: cooperative and healthy appearing Nutritional Appearance: average body habitus and well nourished Eyes EOM: EOM intact bilaterally Neck Other: Cervical collar in place; no impingement noted Resp Effort & Inspection: normal respiratory effort and able to speak in complete sentences Auscultation: clear to auscultation bilaterally Cardio Rate: regular rate Rhythm: regular rhythm GI Inspection: normal to inspection and no abdominal wall ecchymosis Palpation: soft, no guarding and tender (mild RUQ tenderness) Auscultation: normal bowel sounds Back/Spine/Pelvis Cervical Spine: collar present Skin Other: mild ecchymosis to medial LUE Neuro General: patient alert, patient awake and patient oriented x3 Cognition: normal cognition Gait: other (pt able to rise from edge of bed and pivot to chair with cane,min assist) Sensory Exam: no sensory deficits noted Extrem Other: SCDs present to LE bilaterally Psych Mood: congruent mood Affect: normal affect Thought Process: normal Thought Content: normal Objective Last Vital Signs Temp 97.9 F 06/12/22 09:05 Pulse 85 06/12/22 09:05 Resp 15 06/12/22 09:05 BP 153/79 H 06/12/22 06:00 Pulse Ox 95 06/11/22 18:09 Laboratory Results - last 24 hr 06/12/22 06/12/22 05:38 05:38 WBC 9.69 RBC 4.75 Hgb 14.2 Hct 43.9 MCV 92 MCH 29.9 MCHC 32.3 RDW 12.3 Plt Count 175 MPV 12.1 H Sodium 142 Potassium 3.9 Chloride 107 Carbon Dioxide 28.5 Anion Gap 6.5 BUN 17 Creatinine 1.0 Est GFR (CKD-EPI 2020) 83.01 Glucose 102 Calcium 8.5 PAWSS Have you Been Recently Intoxicated or Drunk Within the Last 30 days?: No Have you Ever Experienced Previous Episodes of Alcohol Withdrawal?: No Have you ever Experienced Withdrawal Seizures?: No Have you ever Experienced Delirium Tremens(DT)s?: No Have you ever undergone Alcohol Rehabilitation Treatment (i.e, inpt ot outpatient treatment programs)?: No Have you ever Experienced Blackouts?: No Have you ever Combined Alcohol with other Downers within the last 90 days?: No Have you ever Combined Alcohol with any other Substance of Abuse during the last 90 days?: No Positive Blood Alcohol level on Presentation? [PCS.BAL]: No Evidence of Increased Autonomic Activity (i.e. HR>120, tremor, sweating, agitation, nausea)?: No Result: 0 Time Spent with Patient Time Spent with Patient: 25-34 minutes Time was spent: preparing to see the patient(eg.review tests), obtaining and/or reviewing separately otained hiistory, ordering medications,tests, procedures, referring, communicating with other health resident care technician, indepentently interpreting results, counseling the patient and care coordination
[2022-06-12] MEDS: Normal Saline 500 ML IV (11:21)
[2022-06-12 11:23] LABS: HCT 44.9 % (40.0-50.0); HGB 14.4 g/dL (13.5-17.5); MCH 29.7 pg (27.0-33.0); MCHC 32.1 % (32.0-36.0); MCV 93 fL (80-95); MPV 11.6 fL (8.0-11.0); Platelet Count 190 10^3/uL (130-400); RBC 4.85 10^6/uL (4.36-5.78); RDW 12.4 % (11.8-14.1); RDW-SD 42.3 fL; WBC 10.56 10^3/uL (4.4-10.8)
--- NOTE | 2022-06-12 12:05 | PTTR_ITS ---
Date of service: 06/12/22 Time of Service: 11:30 PT Notes Visit Reasons: Liver Laceration Inpatient Physical Therapy Treatment Note [facility] Date: 06/12/2022 PRECAUTIONS: Fall, Activity as tolerated, C7 nondisplaced fracture, Hard collar at all times SUBJECTIVE: Damien is pleasant and agreeable to participating in PT. He states that he is feeling better today, and attributes this somewhat to taking muscle relaxants this morning. OBJECTIVE: PAIN: Minimal c/o L shoulder/upper trap pain, decreased with gentle TPR and STM techniques BED MOBILITY/TRANSFERS: Sit-stand: SBA Stand-sit: SBA GAIT Assistive Device: SPC Weight bearing: Full Assist: CGA-SBA Distance: 100' Deviation: Hard collar on, short step height and length, no c/o pain STAIRS: Up/down 3x4 and 2x6 using B rails and a step-to pattern with SBA and minimal cueing for step depth due to inability to visualize due to lack of cervical ROM MANUAL THERAPY: Perform gentle/light touch TPR and STM to L upper traps and shoulder area prior to transfer and gait training. ASSESSMENT: Patient tolerated session with minimal c/o L shoulder/upper trap pain, increased B LE pain, improved with light touch gentle TPR and STM. He demonstrates steady gait and pacing, with use of SPC, although demonstrates sh ort step height and length. Recommend home with daughter with services versus discharge to an acute rehab. PLAN: Continue with transfer training, as well as gait training with appropriate and safe posture appreciated. TREATMENT CODE/TIME: 27 minutes; 83434 x2 (11:30)
--- NOTE | 2022-06-12 15:08 | CMPROGNOTE_ITS ---
- If Service Date Differs Date of service: 06/12/22 Time of Service: 15:08 Care Management Progress Note S/O: Damien is open to receiving his care closer to his daughter in [place] if able. Other options discussed with pt and his daughter are SNF for STR vs. Home with [facility] PT/OT. Damien is working with PT. Per daughter Renetta, she called the [facility] and would like Damien transferred there. Renetta provided a number to their transfer ctr , and states in order for this to work Damien will need to be down graded to med surg level care. CM will discuss with medical team. Per Dr. Isidro, Damien will need to wear his neck brace for 4 weeks and will follow up at [facility] spine clinic in 4 weeks. A: 66 year old male admitted to [facility] on 06/09/22 for trauma, liver laceration P: Damien is being closely monitored in the ICU currently. He will likely return home when medically cleared. He will follow up with his PCP and discharge plan of care. CM will continue to follow.
[2022-06-12] MEDS: Lidocaine 5% Patch 1 PATCH TP ×2 (19:15→22:00)
[2022-06-12] MEDS: Normal Saline Flush 10 ML SYR IVP (19:38)
[2022-06-13] VITALS (15 sets, daily range): BP systolic 98–149; BP diastolic 53–87; PULSE 48–86; RESP 12–18; TEMP 36.8–37.2; O2SAT 96–100
[2022-06-13] MEDS: Methocarbamol 750 MG TAB PO ×4 (02:00→20:07)
[2022-06-13] MEDS: Acetaminophen 500 MG TAB 1000 MG PO ×3 (02:00→18:05)
[2022-06-13] MEDS: oxyCODONE 5 MG TAB PO ×3 (05:05→16:46)
[2022-06-13 06:08] LABS: HCT 44.6 % (40.0-50.0); HGB 14.6 g/dL (13.5-17.5); MCHC 32.7 % (32.0-36.0); MCV 92 fL (80-95); MPV 12.5 fL (8.0-11.0); Platelet Count 185 10^3/uL (130-400); RBC 4.87 10^6/uL (4.36-5.78); RDW 12.3 % (11.8-14.1); RDW-SD 41.3 fL; WBC 8.51 10^3/uL (4.4-10.8)
[2022-06-13 06:34] LABS: Anion Gap 9.9 mmol/L (3-11); BUN 14 mg/dL (7-18); CO2 27.1 mmol/L (21.0-32.0); CREATININE 0.9 mg/dL (0.70-1.30); Calcium 9.1 mg/dL (8.5-10.1); Chloride 106 mmol/L (98-107); Estimated GFR 94.19 (mL/min/1.73m2); Glucose 118 mg/dL (74-106); Potassium 4.1 mmol/L (3.5-5.1); Sodium 143 mmol/L (136-145)
[2022-06-13] MEDS: Normal Saline Flush 10 ML SYR IVP (06:57)
[2022-06-13] MEDS: MORPHine 4 MG/ML SYR 3 MG IVP (06:58)
[2022-06-13] MEDS: Docusate Sodium 100 MG CAP PO ×2 (08:14→20:07)
[2022-06-13] MEDS: LIDOCAINE Patch Removal 1 EACH TP (08:15)
--- NOTE | 2022-06-13 09:40 | PTTR_ITS ---
Date of service: 06/13/22 Time of Service: 08:50 PT Notes Visit Reasons: Liver Laceration Inpatient Physical Therapy Treatment Note [facility] Date: 06/13/2022 PRECAUTIONS: Fall, Activity as tolerated, C7 nondisplaced fracture, Hard collar at all times SUBJECTIVE: Damien is pleasant and agreeable to participating in PT. He states that he is feeling a little groggy today from taking morphine in the [facility] ht. OBJECTIVE: PAIN: Minimal c/o L shoulder/upper trap pain, decreased with gentle TPR and STM techniques BED MOBILITY/TRANSFERS: Sit-stand: SBA Stand-sit: SBA GAIT Assistive Device: SPC Weight bearing: Full Assist: CGA-SBA Distance: 100' Deviation: Hard collar on, short step height and length, no c/o pain VITALS: BP: 98/57 post gait training with c/o clamminess and general feelings of unwell, reported to nursing. STAIRS: Up/down 3x4 and 2x6 using B rails and a step-to pattern with SBA and minimal cueing for step depth due to inability to visualize due to lack of cervical ROM MANUAL THERAPY: With patient seated at EOB, perform gentle/light touch TPR and STM to L upper traps and shoulder area prior to transfer and gait training. ASSESSMENT: Patient tolerated session with minimal c/o L shoulder/upper trap pain, increased B LE pain, improved with light touch gentle TPR and STM. He demonstrates steady gait and pacing, with use of SPC, although demonstrates short step height and length. Recommend home with daughter with services versus discharge to an acute rehab. PLAN: Continue with transfer training, as well as gait training with appropriate and safe posture appreciated. TREATMENT CODE/TIME: 25 minutes; 16321 x2 (08:50)
--- NOTE | 2022-06-13 09:45 | RT.EKG_ITS ---
APPROVED REPORT Exam: Resting ECG Reason for Exam: diaphoresis, bradycardia Patient Location: I HR:64 bpm ECG Measurements Heart Rate 64 AXIS FL 143 P 53 QRSd 82 QRS 52 QT 398 T 73 QTc 411 Conclusion Sinus rhythm...normal P axis, V-rate 50- 99 Probable left atrial enlargement...P >50mS, <-0.10mV V1 Probable left ventricular hypertrophy...multiple LVH criteria Nonspecific T abnormalities, lateral leads...T <-0.10mV, I aVL V5 V6
[2022-06-13] MEDS: Ondansetron 4 MG/2 ML VIAL IVP (09:48)
[2022-06-13] MEDS: Patch Removal 1 EACH TP (10:01)
[2022-06-13 10:24] LABS: Troponin I < 50 ng/L (<or=60)
--- NOTE | 2022-06-13 13:34 | W.PM.PROGNOT ---
Date of Service Date of service: 06/13/22 Time of Service: 11:20 Assessment and Plan Assessment and plan (1) Radicular pain of left upper extremity: Status: Acute Assessment and plan: Pt is still experiencing some spasms and discomfort in left upper back, as well as, some neuropathic pain in the left arm --lidoderm patch --keep LUE supported while supine --Physical therapy (2) Closed nondisplaced fracture of seventh cervical vertebra: Status: Acute Assessment and plan: Based on CT scan, there does not appear to be a change in the fracture status. Images were reviewed with Dr. Bishop of Radiology. --Maintain cervical collar with careful attention to pressure points --physical therapy recommended HHPT vs. SNF upon discharge (3) Liver laceration, closed: Status: Acute Assessment and plan: s/p traumatic grade II liver laceration. Concern for ongoing/worsening injury is decreased. --limit bending, twisting, turning; aggressive activity --H/H stable --hemodynamically stable --converted to MedSurg status (4) Discharge planning issues: Status: Acute Assessment and plan: The patient still has ongoing pain control issues, and will need post-discharge physical therapy. The patient and his family are requesting transfer to a tertiary care center in [place], close to where his daughter lives, and where he plans to recover following discharge. --outreach has been made to the [facility] ([place], [place]) transfer center, per the pt's daughter's request: [phone] Subjective Subjective Interval history since last seen: Received call from nursing earlier that patient had a transient event of diaphoresis, clamminess, with increased LUE pain and decreased BP, and HR. This occurred about 10 minutes after ambulating with PT, and something similar happened yesterday. Dr. Hale, Hospitalist, kindly and efficiently evaluated the patient, and believes he had a vasovagal event, and did not demonstrate any neuromuscular deficits. His vital signs recovered without any intervention. The patient is resting comfortably at present. He denies any sensory or motor deficits. He is experiencing some left upper extremity sharp burning that begins around the tricep and migrates down to his fingers when the pain medication wears off, and feels that when that plateaus, is when he experiences these vagal events. He reports that he has had similar reactions to pain in the distant past. Otherwise, he has no complaints. Nursing reports that he is still requiring morphine for breakthrough pain. Exam Const General: cooperative and healthy appearing Nutritional Appearance: average body habitus and well nourished Eyes EOM: EOM intact bilaterally Neck Other: Cervical collar in place; no impingement noted Resp Effort & Inspection: normal respiratory effort and able to speak in complete sentences Auscultation: clear to auscultation bilaterally Cardio Rate: regular rate Rhythm: regular rhythm GI Inspection: normal to inspection and no abdominal wall ecchymosis Palpation: soft, no guarding and tender (mild RUQ tenderness) Auscultation: normal bowel sounds Back/Spine/Pelvis Cervical Spine: collar present Skin Other: mild ecchymosis to medial LUE Neuro General: patient alert, patient awake and patient oriented x3 Cognition: normal cognition Gait: other Motor: strength 5/5 throughout Sensory Exam: no sensory deficits noted Psych Mood: congruent mood Affect: normal affect Thought Process: normal Thought Content: normal Objective Last Vital Signs Temp 98.4 F 06/13/22 08:00 Pulse 72 06/13/22 11:52 Resp 13 06/13/22 11:52 BP 149/87 H 06/13/22 11:52 Pulse Ox 100 06/13/22 09:39 Laboratory Results - last 24 hr 06/13/22 06/13/22 06/13/22 05:15 05:15 10:00 WBC 8.51 RBC 4.87 Hgb 14.6 Hct 44.6 MCV 92 MCH 30.0 MCHC 32.7 RDW 12.3 Plt Count 185 MPV 12.5 H Sodium 143 Potassium 4.1 Chloride 106 Carbon Dioxide 27.1 Anion Gap 9.9 BUN 14 Creatinine 0.9 Est GFR (CKD-EPI 2020) 94.19 Glucose 118 H Calcium 9.1 Troponin I < 50 PAWSS Have you Been Recently Intoxicated or Drunk Within the Last 30 days?: No Have you Ever Experienced Previous Episodes of Alcohol Withdrawal?: No Have you ever Experienced Withdrawal Seizures?: No Have you ever Experienced Delirium Tremens(DT)s?: No Have you ever undergone Alcohol Rehabilitation Treatment (i.e, inpt ot outpatient treatment programs)?: No Have you ever Experienced Blackouts?: No Have you ever Combined Alcohol with other Downers within the last 90 days?: No Have you ever Combined Alcohol with any other Substance of Abuse during the last 90 days?: No Positive Blood Alcohol level on Presentation? [PCS.BAL]: No Evidence of Increased Autonomic Activity (i.e. HR>120, tremor, sweating, agitation, nausea)?: No Result: 0 Time Spent with Patient Time Spent with Patient: >50 minutes Time was spent: preparing to see the patient(eg.review tests), obtaining and/or reviewing separately otained hiistory, ordering medications,tests, procedures, referring, communicating with other health property caretaker, indepentently interpreting results, counseling the patient and care coordination
[2022-06-13] MEDS: Lidocaine 5% Patch 2 PATCH TP (20:06)
[2022-06-14] MEDS: Acetaminophen 500 MG TAB 1000 MG PO ×4 (00:53→17:58)
[2022-06-14] MEDS: Methocarbamol 750 MG TAB PO ×4 (02:42→20:10)
[2022-06-14 03:44] VITALS: BP 144/81; PULSE 60; RESP 16; TEMP 36.4; O2SAT 97
[2022-06-14 06:22] LABS: Anion Gap 6.9 mmol/L (3-11); BUN 19 mg/dL (7-18); CO2 28.1 mmol/L (21.0-32.0); CREATININE 1.1 mg/dL (0.70-1.30); Calcium 8.9 mg/dL (8.5-10.1); Chloride 107 mmol/L (98-107); Estimated GFR 74.04 (mL/min/1.73m2); Glucose 109 mg/dL (74-106); Potassium 4.3 mmol/L (3.5-5.1); Sodium 142 mmol/L (136-145)
[2022-06-14 07:25] VITALS: BP 139/60; PULSE 66; RESP 18; TEMP 36.7; O2SAT 95
--- NOTE | 2022-06-14 09:59 | CMPROGNOTE_ITS ---
- If Service Date Differs Date of service: 06/14/22 Time of Service: 09:59 Care Management Progress Note S/O: Damien is sitting in his chair when CM met with him. He is awake, alert, pleasant and easily engages in conversation. Damien is planning to recover at his daughter Renetta's home in [place] and will be driven via private vehicle with family. Per Renetta, VNA services will be provided by [facility] and orders will be followed Dr. Benjamin Jacobson from Critical Care Medicine at [facility]. He is still planning on following up with [facility] like originally planned. EMS transportation would have been $5000 out of pocket, and is declined by pt. CM will continue to follow. A: 66 year old male admitted to [facility] on 06/09/22 for trauma, liver laceration P: Damien is planning to discharge, when medically ready and travel via private vehicle with family to his daughters home in [place] VNA services will be provided by [facility] [place], the following provider will be Dr. Benjamin Jacobson. At this time, Damien is still planning on following up with [facility]. CM will continue to follow. Kudan Dr. Benjamin aJcobson Renetta Cochran Address: [address] [place] [address]. [phone]
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
[2022-06-14] MEDS: Docusate Sodium 100 MG CAP PO ×2 (10:33→19:13)
[2022-06-14] MEDS: Lidocaine Patch Removal 2 EACH TP (10:34)
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
[2022-06-14 11:26] VITALS: BP 171/83; PULSE 82; RESP 16; TEMP 36.8; O2SAT 99
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
[2022-06-14 15:23] VITALS: BP 164/83; PULSE 74; RESP 18; TEMP 37.1; O2SAT 94
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
--- NOTE | 2022-06-14 16:09 | W.PM.PROGNOT ---
Date of Service Date of service: 06/14/22 Time of Service: 15:15 Assessment and Plan Assessment and plan (1) Radicular pain of left upper extremity: Status: Acute Assessment and plan: Pt is still experiencing some spasms and discomfort in left upper back, as well as, some neuropathic pain in the left arm --lidoderm patch --keep LUE supported while supine --Physical therapy (2) Closed nondisplaced fracture of seventh cervical vertebra: Status: Acute Assessment and plan: Based on CT scan, there does not appear to be a change in the fracture status. Images were reviewed with Dr. Bihsop of Radiology. --Maintain cervical collar with careful attention to pressure points --physical therapy recommended HHPT vs. SNF upon discharge (3) Liver laceration, closed: Status: Acute Assessment and plan: s/p traumatic grade II liver laceration. Concern for ongoing/worsening injury is decreased. --limit bending, twisting, turning; aggressive activity --H/H stable --hemodynamically stable --converted to Medr status (4) Visual changes: Status: Acute Assessment and plan: Pt first reported the vision changes of things appearing closer than they are today, though he had a few episodes of this occurring yesterday. He was evaluated by CT head, Dr. Hale, and Dr. Barton. Thankfully, the symptoms resolved, and no acute changes or concerns were identified. --appreciate Hospitalist input --appreciate Neurology input (5) Discharge planning issues: Status: Acute Assessment and plan: Given the personal cost of paying for ambulance transfer to [place], the plan is for the patient to be discharged and for his son-in-law to drive him, by personal vehicle, to [place]. Home health PT is being arranged there, and he will be managed by Dr. Benjamin Jacobson . Subjective Subjective Interval history since last seen: Pt is feeling fairly well today. He did verbalize earlier that he was having some depth perception changes over the last couple of days that had not been occurring similarly previously in this admission. A CT head, Hospitalist evaluation, and a neuro consult were ordered. It later became evident that he has long-standing issues with depth perception due to an injury to his left eye as a child. He noticed the changes when he was first waking up and they resolved rather quickly. He is now without complaints. He feels well today, with decreased discomfort in his left shoulder, and denies radiating burning sensation into his left hand. However, he noted more midline cervical discomfort when chewing last night. His pain is well-controlled without narcotics today. He is prepared to be discharged tomorrow, with plans to go to his daughter's home in [place], with home PT. Exam Const General: cooperative and healthy appearing Nutritional Appearance: average body habitus and well nourished Eyes EOM: EOM intact bilaterally Neck Other: Cervical collar in place; no impingement noted Resp Effort & Inspection: normal respiratory effort and able to speak in complete sentences Auscultation: clear to auscultation bilaterally Cardio Rate: regular rate Rhythm: regular rhythm GI Inspection: normal to inspection and no abdominal wall ecchymosis Palpation: soft and no guarding Auscultation: normal bowel sounds Back/Spine/Pelvis Cervical Spine: collar present Neuro General: patient alert, patient awake and patient oriented x3 Cognition: normal cognition Gait: other Motor: strength 5/5 throughout Sensory Exam: no sensory deficits noted Psych Mood: congruent mood Affect: normal affect Thought Process: normal Thought Content: normal Objective Last Vital Signs Temp 98.8 F 06/14/22 15:23 Pulse 74 06/14/22 15:23 Resp 18 06/14/22 15:23 BP 164/83 H 06/14/22 15:23 Pulse Ox 94 06/14/22 15:23 Laboratory Results - last 24 hr 06/14/22 05:20 Sodium 142 Potassium 4.3 Chloride 107 Carbon Dioxide 28.1 Anion Gap 6.9 BUN 19 H Creatinine 1.1 Est GFR (CKD-EPI 2020) 74.04 Glucose 109 H Calcium 8.9 PAWSS Have you Been Recently Intoxicated or Drunk Within the Last 30 days?: No Have you Ever Experienced Previous Episodes of Alcohol Withdrawal?: No Have you ever Experienced Withdrawal Seizures?: No Have you ever Experienced Delirium Tremens(DT)s?: No Have you ever undergone Alcohol Rehabilitation Treatment (i.e, inpt ot outpatient treatment programs)?: No Have you ever Experienced Blackouts?: No Have you ever Combined Alcohol with other Downers within the last 90 days?: No Have you ever Combined Alcohol with any other Substance of Abuse during the last 90 days?: No Positive Blood Alcohol level on Presentation? [PCS.BAL]: No Evidence of Increased Autonomic Activity (i.e. HR>120, tremor, sweating, agitation, nausea)?: No Result: 0 Time Spent with Patient Time Spent with Patient: 35-49 minutes Time was spent: preparing to see the patient(eg.review tests), obtaining and/or reviewing separately otained hiistory, ordering medications,tests, procedures, referring, communicating with other health out of school hours care worker, indepentently interpreting results, counseling the patient and care coordination
[2022-06-14] MEDS: Normal Saline Flush 10 ML SYR IVP (17:58)
[2022-06-14] MEDS: Lidocaine 5% Patch 2 PATCH TP (19:13)
[2022-06-14 19:34] VITALS: BP 154/86; PULSE 86; RESP 17; TEMP 36.9; O2SAT 96
[2022-06-14 19:35] VITALS: BP 145/87; PULSE 88; RESP 16; TEMP 37; O2SAT 96
[2022-06-14] MEDS: Milk of Magnesia 30 ML CUP PO (20:10)
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
[2022-06-15] MEDS: Acetaminophen 500 MG TAB 1000 MG PO ×3 (01:52→12:27)
[2022-06-15] MEDS: Methocarbamol 750 MG TAB PO ×3 (01:53→13:44)
[2022-06-15 01:55] VITALS: BP 149/88; PULSE 68; RESP 16; TEMP 36.5; O2SAT 97
[2022-06-15 07:20] LABS: HCT 41.1 % (40.0-50.0); HGB 13.5 g/dL (13.5-17.5); MCH 29.7 pg (27.0-33.0); MCHC 32.8 % (32.0-36.0); MCV 91 fL (80-95); MPV 11.5 fL (8.0-11.0); Platelet Count 193 10^3/uL (130-400); RBC 4.54 10^6/uL (4.36-5.78); RDW 12.5 % (11.8-14.1); RDW-SD 41.3 fL; WBC 6.79 10^3/uL (4.4-10.8)
[2022-06-15 07:25] VITALS: BP 149/82; PULSE 64; RESP 16; TEMP 36.4; O2SAT 98
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
[2022-06-15] MEDS: Docusate Sodium 100 MG CAP PO (08:33)
[2022-06-15] MEDS: Normal Saline Flush 10 ML SYR IVP (08:34)
[2022-06-15] MEDS: Lidocaine Patch Removal 2 EACH TP (08:34)
[2022-06-15 11:23] VITALS: BP 162/85; PULSE 74; RESP 16; TEMP 36.6; O2SAT 96
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
--- NOTE | 2022-06-15 13:30 | PDOC.CMDIS ---
- If Service Date Differs Date of service: 06/15/22 Time of Service: 13:30 LACE Index Scoring Tool - Questions: Length of Stay (in days): 4 - 6 Acuity (Admit via E.D.?): Yes E.D. Visits: 1 - Answers: Total Score: 8 Risk of Readmission: Low Risk Care Management Discharge Reason for Hospitalization: Liver laceration Discharge Plan: Damien will be discharged today, and will travel with his son in law via private vehicle to stay with him and his daughter while he recovers, in [place]. He will have his follow up appointments in [place], as arranged between his daughter and surgical services. ANNE sent a referral to PEDRO SEWELL through [employer] [facility], who was working on a PA with his insurance at the time of discharge. Damien feels confident that his insurance will authorize his care, and has contact information for a dairy supplies sales representative of his insurance company. He is happy to be discharging, and is comfortable with his plan. Patient/Family Education Needs: Review discharge instructions and limitations, discussion of self care needs including ask me three. Services Needed at Discharge: Home Health Care Services ([facility] PT, [employer] [facility])
--- NOTE | 2022-06-15 18:10 | INDS_ITS ---
Date of service: 06/15/22 PT Notes Visit Reasons: Liver Laceration, C7 fracture Physical Therapy Inpatient Discharge Summary Date: 06/11/2022 Dates of Service: 06/11/2022 through 06/13/2022 This is a clinical summary of care provided for the duration of dates listed above. No charge was made in the completion of this documentation. Referring Doctor: Tatum Isidro MD PT Orders: PT CONSULT: Limited ability.? New TBI, cervical fracture with C- collar in place Precautions: Fall. Standard.?Delphi J advanced cervical collar in place AT ALL TIMES even with hygiene per [facility] [place]. Patient Profile/Admitting Diagnosis:? Damien is a 66-year-old male who encountered a skiing accident that resulted to fracture of the left transverse process and facet of C7 and C7 osteophyte fracture anteriorly with neural foraminal narrowing at C6-C7 level due to fracture fragments.? Imaging of the left upper extremity showed no fracture nor dislocation.? PMHX: All Active Problems?(Updated 06/09/22 @ 19:54 by Cruz Clarke DO) Concussion (Acute) Closed nondisplaced fracture of seventh cervical vertebra (Acute) Liver laceration, closed (Acute) Injury due to skiing accident (Acute) Tinea pedis (Acute) BPH NOS w/o ur obs/LUTS (Acute) Elevated BP without diagnosis of hypertension (Acute) Seasonal allergic rhinitis due to pollen (Acute) Migraine with aura and without status migrainosus, not intractable (Acute) Nasal polyp (Chronic) Elevated LDL cholesterol level (Chronic) Family history of Alzheimer's disease (Acute 10/04/17) History of tobacco use (Acute) Injury of eye region (Acute) Nasal septal deviation (Acute 10/04/17) Medical History?(Updated 06/09/22 @ 19:54 by Cruz Clarke DO) Nasal septal deviation Surgical History? colonoscopy (12/26/17) Colonoscopy - MAC (~2006) eye surgery left Tonsillectomy Social History/Home Situation: Recently retired.? Independent with all aspects of ADLs prior to admission. Equipment Owned/DME: None Subjective: NT. See most recent QUALITY ASSURANCE CLERK notes. Objective: General Observation: NT. See most recent QUALITY ASSURANCE CLERK notes. Palpation:? NT. See most recent QUALITY ASSURANCE CLERK notes. Mental Status: NT. See most recent QUALITY ASSURANCE CLERK notes. Pain: NT. See most recent QUALITY ASSURANCE CLERK notes. Vital Signs: NT. See most recent QUALITY ASSURANCE CLERK notes. ROM: Right Upper Extremity: ? Shoulder Flexion NT. Shoulder abduction NT. Elbow flexion WFL. Wrist flexion WFL. Functional opening and closing of hand WFL. Left Upper Extremity:? Shoulder Flexion NT. Shoulder abduction NT. Elbow flexion WFL. Elbow extension WFL.? Wrist flexion WFL. Functional opening and closing of hand WFL. Right Lower Extremity: Hip flexion WFL. Hip abduction WFL. Knee flexion WFL. Ankle dorsiflexion WFL. Ankle plantarflexion WFL. Left Lower Extremity: Hip flexion WFL. Hip abduction WFL. Knee flexion WFL. Ankle dorsiflexion WFL. Ankle plantarflexion WFL. Strength: Right Upper Extremity: Shoulder flexors NT. Shoulder abductors NT. Elbow flexors []/5. Elbow extensors []/5. Rib Trim Separator strong. Left Upper Extremity: Shoulder flexors NT. Shoulder abductors NT.?Elbow flexors 4-/5. Elbow extensors 3/5. Rib Trim Separator weaker than L. Right Lower Extremity: Hip flexors 5/5. Hip abductors 5/5. Knee flexors 5/5. Knee extensors 5/5. Ankle dorsiflexors 5/5. Ankle plantarflexors 5/5. Left Lower Extremity: Hip flexors 5/5. Hip abductors 5/5. Knee flexors 5/5. Knee extensors 5/5. Ankle dorsiflexors 5/5. Ankle plantarflexors 5/5. BED MOBILITY/TRANSFERS: ? Sit-stand: SBA? Stand-sit: SBA? GAIT? Assistive Device: SPC ? Weight bearing: Full Assist: CGA-SBA ? Distance:? 100' ? Deviation: Hard collar on, short step height and length, no c/o pain ? VITALS: BP: 98/57 post gait training with c/o clamminess and general feelings of unwell, reported to nursing. ? STAIRS:? Up/down 3x4 and 2x6 using B rails and a step-to pattern with SBA and minimal cueing for step depth due to inability to visualize due to lack of cervical ROM ? ? ? Balance: Static Sitting: Normal Dynamic Sitting: Fair Static Standing: Fair Dynamic Standing: Fair Neuro: GCS score 15: Spontaneous eye opening,? oriented x 3,? obeys motor responses. C7 myotome triceps and wrist extensors 3/5 Assessment: Patient demonstrating L C6-C7 radiculopathy resulting from C7 TP,? upper facet and osteophyte fracture sustained from skiing accident.? L shoulder girdle muscles in severe guarding.? Shooting subscapular pain occurs with partial side lying to sit movement transition,? question L lower trap muscle tear vs severe L muscle strain vs upper brachial plexopathy.? Ensure that collar is adjusted as needed to ensure optimal fit.? Will need to tolerate sitting as patient plans on going to daughter's house in [place] should he need continued assistance beyond 2 weeks.? Able to tolerate ambulation using SPC.? Patient presents with clinical signs and symptoms consistent with current/adm itting diagnoses that have resulted to mobility limitations, gait instability, generalized weakness, and overall ADL decline as demonstrated by the following impairment level findings: 1.? Decreased strength to L triceps 2.? Decreased balance awareness due to collar use 3.? Impaired activity tolerance 4.? Pain in L scapula and L UE aggarvated by movement/positional change Impairments are contributing to the following functional limitations: 1.? Decline in bed mobility skills 2.? Decline in transfer skills 3.? Difficulty with ambulation without assistive device and physical assistance 4.? Increased completion time for mobility ADL performance 5.? Increased risk for falls Goals: Goals X1 week 1. Supine-Sit independent NOT MET 2. Sit-Supine independent NOT MET 3. Sit-Stand independent NOT MET NOT MET 4. Stand-Sit independent with SPC NOT MET 5. Bed-Chair independent with SPC NOT MET 6. Chair-Bed independent with SPC NOT MET 7. Independent gait on level surface with use of SPC for at least 300 feet without report of pain nor dyspnea NOT MET 8. Independent stair negotiation while holding onto B rails for at least 5 steps without report of pain nor dyspnea NOT MET 9. Independent with home exercise program NOT MET 10. Good static and dynamic standing balance/tolerance NOT MET DISCHARGE RECOMMENDATIONS: []? Home with no services [] [] ? Home with services [specify] [] ? Home with outpatient PT [] [] ? SNF for continued rehabilitation [] [] ? Consular Officer Care [] [] ? SNF versus LTC based on ability to participate and progress [] [X] ? HHPT vs.? SNF until [place] [facility] [place] after 2 weeks TREATMENT CODE/TIME: [place] Thank you for the opportunity to participate in the care of this patient. Lidya Hanson PT, DPT, CLT [facility] [place], [place]
== END 2022-06-15 14:18 | disposition home health service (06) | DRG 964 ==
LOC: ER 20:32 → ICU 21:20 → MS 06-13 16:47
PROVIDERS: Internal Medicine; Surgery; Admitting Provider Student in an Organized Health Care Education/Training Program; Emergency Provider Student in an Organized Health Care Education/Training Program; PCP Family Medicine; Visit Provider Student in an Organized Health Care Education/Training Program
DX: S06.9X2A Unspecified intracranial injury with loss of consciousness of 31 minutes to 59 minutes, initial encounter (principal); S36.115A Moderate laceration of liver, initial encounter; S12.601A Unspecified nondisplaced fracture of seventh cervical vertebra, initial encounter for closed fracture; W22.09XA Striking against other stationary object, initial encounter; Y93.23 Activity, snow (alpine) (downhill) skiing, snowboarding, sledding, tobogganing and snow tubing; Y92.838 Other recreation area as the place of occurrence of the external cause; E78.00 Pure hypercholesterolemia, unspecified; N40.0 Benign prostatic hyperplasia without lower urinary tract symptoms; G43.109 Migraine with aura, not intractable, without status migrainosus; J33.9 Nasal polyp, unspecified; Z87.891 Personal history of nicotine dependence; G54.0 Brachial plexus disorders; R55 Syncope and collapse; H53.9 Unspecified visual disturbance
CPT/HCPCS: 36415; 70498; 74177; 76604; 76705; 76857; 80048; 80053; 80076; 80307; 82550; 82805; 83690; 85027; 86850; 86900; 86901; 86920; 87635; 93005; 96374; 97110; 97162; 97165; 97530; 97535; 99221; 99232; 99239; 99285; 70450; 71260; 72125; 73201; 80320; 83735; 84484; 85025; 85610; 85730; 93010; 99222; 99231; J2270; J2405; J3490

== ENCOUNTER 2023-02-08 09:51 | Outpatient (CLI) | payer MEDICARE, SELFPAY ==
[2023-02-08 12:30] LABS: Calculated LDL 133 mg/dL (<100); Cholesterol 211 mg/dL (<200); HDL Cholesterol 57 mg/dL (40-60); Triglyceride 109 mg/dL (<150)
[2023-02-08 12:38] LABS: Hemoglobin A1C 5.6 % (<5.7)
[2023-02-09 09:53] LABS: PSA, Screening 1.4 ng/mL (<=4.5)
== END 2023-02-08 09:52 | disposition home or self-care (01) ==
LOC: LOS 09:51
PROVIDERS: PCP Family Medicine; Referring Provider Family Medicine; Visit Provider Family Medicine
DX: E78.5 Hyperlipidemia, unspecified (principal); E11.69 Type 2 diabetes mellitus with other specified complication; Z12.5 Encounter for screening for malignant neoplasm of prostate
CPT/HCPCS: 36415; 80061; 84153; 83036

== ENCOUNTER 2024-02-23 01:15 | Outpatient (CLI) | payer MEDICARE, SELFPAY ==
--- NOTE | 2024-02-23 12:45 | DI.US_ITS ---
Exam(s) US AAA SCREENING EXAM: US AAA SCREENING CLINICAL HISTORY: remote tobacco use,Z87.891, SCREENING FOR AAA COMPARISON: No exams were available for comparison FINDINGS: No evidence of abdominal aortic aneurysm. Maximum diameter of the abdominal aorta is 2.3 cm, proxima lly. Distal aorta tapers normally. Visualized common iliac arteries exhibit normal size. IMPRESSION: No evidence of abdominal aortic aneurysm. DATA REPOSITORY:
== END 2024-02-23 01:35 ==
LOC: DI 01:15
PROVIDERS: PCP Family Medicine; Visit Provider Family Medicine
DX: Z13.6 Encounter for screening for cardiovascular disorders (principal)
CPT/HCPCS: 76706

== ENCOUNTER 2024-02-23 02:54 | Outpatient (CLI) | payer MEDICARE, SELFPAY ==
[2024-02-23 11:27] LABS: Calculated LDL 144 mg/dL (<100); Cholesterol 215 mg/dL (<200); HDL Cholesterol 51 mg/dL (40-60); Triglyceride 103 mg/dL (<150)
[2024-02-23 20:53] LABS: PSA, Screening 2.2 ng/mL (<=4.5)
== END 2024-02-23 02:55 | disposition home or self-care (01) ==
LOC: LBO 02:54
PROVIDERS: PCP Family Medicine; Visit Provider Family Medicine
DX: Z12.5 Encounter for screening for malignant neoplasm of prostate (principal); E78.5 Hyperlipidemia, unspecified
CPT/HCPCS: 36415; 80061; 84153

== ENCOUNTER 2025-02-21 04:17 | Outpatient (CLI) | payer MEDICARE, SELFPAY ==
[2025-02-21 10:35] LABS: Calculated LDL 177 mg/dL (<100); Cholesterol 252 mg/dL (<200); HDL Cholesterol 54 mg/dL (>or=40); Triglyceride 109 mg/dL (<150)
[2025-02-21 19:30] LABS: PSA, Screening 2.5 ng/mL (<=4.5)
[2025-02-23 08:15] LABS: ALT 32 U/L (16-63); AST 25 U/L (15-37)
[2025-02-24 06:10] LABS: Lab Add On Test DONE
== END 2025-02-21 04:18 | disposition home or self-care (01) ==
LOC: LBO 04:17
PROVIDERS: PCP Family Medicine; Visit Provider Family Medicine
DX: E78.5 Hyperlipidemia, unspecified (principal); Z12.5 Encounter for screening for malignant neoplasm of prostate; Z13.220 Encounter for screening for lipoid disorders
CPT/HCPCS: 36415; 80061; 83695; 84153; 84450; 84460

== ENCOUNTER → 2025-04-29 14:56 | Outpatient (BNVA) | payer MEDICARE, SELFPAY | PROVIDERS: PCP Family Medicine; Referring Provider Family Medicine; Visit Provider Student in an Organized Health Care Education/Training Program | DX: L82.0 Inflamed seborrheic keratosis (principal) | CPT/HCPCS: 11401 ==

== ENCOUNTER 2025-04-29 15:28 | Outpatient (REF) | payer MEDICARE, SELFPAY ==
--- NOTE | 2025-04-29 15:40 | SKI_PTH ---
PATIENT: Damien Braga LOC: [facility] U#:[id number] AGE/SX: 69/M ROOM: RE04/29/[address]: Karen Bojorquez : 1955 BED: DIS: 04/29/2025 SPEC #: [id number] RECD: 04/29/25 17:41 STATUS: SUSAN REQ #: [id number] ALTAGRACIA: 04/29/25 15:[address]: Karen Bojorquez DEPT: Surgical Specimen RECD BY: Sherlyn Caldera ENTERED: 04/29/25 17:41 SP TYPE: ALBERTO STEELE DR: Jude Baker MD Tissues: 1 - SKIN BIOPSY(SHAVE/PUNCH) Procedures: SKIN LEVEL 4 Comments: [id number]
== END 2025-04-29 15:29 | disposition home or self-care (01) ==
LOC: LBN 15:28
PROVIDERS: PCP Family Medicine; Visit Provider Student in an Organized Health Care Education/Training Program
DX: L82.1 Other seborrheic keratosis (principal)
CPT/HCPCS: 88305